=== PATIENT | male | born 1950 | race Caucasian/White ===

== ENCOUNTER → 2019-08-22 08:53 | Outpatient (BNVA) | payer MEDICARE, SELFPAY | PROVIDERS: Visit Provider Specialist | DX: G20 Parkinson's disease (principal); F17.210 Nicotine dependence, cigarettes, uncomplicated | CPT/HCPCS: 99213 ==

== ENCOUNTER 2019-12-10 08:10 | Observation (INO) | payer MEDICARE, SELFPAY ==
[2019-12-10] VITALS (10 sets, daily range): BP systolic 117–158; BP diastolic 80–92; PULSE 57–97; RESP 16–22; TEMP 36.4–36.7; O2SAT 95–98; BMI 42.5
--- NOTE | 2019-12-10 08:11 | CTR_ITS ---
PROCEDURE INFORMATION: Exam: CT Head Without Contrast Exam date and time: 12/10/2019 8:12 AM Age: 68 years old Clinical indication: Weakness, extremity; Left; Additional info: Left sided weaknes TECHNIQUE: Imaging protocol: Computed tomography of the head without contrast. Radiation optimization: All CT scans at this facility use at least one of these dose optimization techniques: automated exposure control; mA and/or kV adjustment per patient size (includes targeted exams where dose is matched to clinical indication); or iterative reconstruction. COMPARISON: CT head wo con* [id number] 10/01/2016 12:00 PM RADIATION DOSE METRICS: Total DLP: 820.13 mGy-cm FINDINGS: Brain: Symmetric prominence of the cortical and cerebellar sulci. No acute cortical infarct, mass effect, or intracranial hemorrhage. Minimal small-vessel ischemic change. Poorly defined curvilinear hyperdensity in the ty (series 2: Image 17), which was also present on the prior study and can be better evaluated with MRI if clinically indicated. Ventricles: Normal configuration of the ventricles. Bones/joints: No acute calvarial pathology. Sinuses: Low-grade inflammatory change in the right ethmoid sinus. Mastoid air cells: No mastoid effusion . Vasculature: Vascular calcification. Soft tissues: Unremarkable soft tissues. When correlating with the previous study, no significant interval changes are present. CT/CT head wo con* [id number] IMPRESSION: Stable appearance of the brain, not significantly changed from 10/01/16. Radiation Dose CTDIVOL = (mGy): DLP = 820.13 (mGy-cm)
--- NOTE | 2019-12-10 08:15 | ED_ITS ---
HPI - Neuro Symptoms/Deficit General: Chief Complaint: Neuro Symptoms/Deficit Stated Complaint: POSS CVA Time Seen by Provider: 12/10/19 08:14 History of Present Illness: HPI Narrative: 68-year-old male who awoke this morning with left-sided weakness, facial weakness, and feeling of numbness. Trouble with speech, although his words are a bit slurred. Onset (ago): hour(s) Last Observed Normal: 22:30 Timing confirmed by: family member Location: left face, dysarthria, left arm and left leg History of same: No Severity: moderate Quality: weak and numb Relieving factors: none Exacerbating factors: none Context: gradual onset On Anticoagulants: No Associated symptoms: Deny chest pain, cough, headache(s), short of breath, vertigo or vomiting Review of Systems Const: Denies: fever(s) or chills Eyes: Denies: change in vision or blurry vision ENMT: Denies: swelling of lips/tongue or sinus pain Card: Denies: chest pain Resp: Denies: dyspnea, productive cough, non-productive cough or wheezing GI: Denies: vomiting : Denies: difficulty urinating, dysuria, urinary frequency, urinary urgency or hematuria Musc: Denies: neck pain, back pain, joint redness or joint warmth Skin/Breast: Denies: rash, pruritus or erythema Neuro: Denies: headache(s), dizziness or vertigo Psych: Denies: anxiety PFSH ED PFSH: Family History Other Cancer Stroke Denies family history of Diabetes CAD (coronary artery disease) Hypertension Social History Smoking and tobacco status: current every day smoker cigarettes [ Other cigarette details: trying to quit ] Alcohol intake: current Alcohol intake frequency: holidays/special occasions only History of recent travel: No NIH stroke score NIHSS: Level Of Consciousness - 1a: 0 Level Of Consciousness Questions - 1b: Both Correct Level Of Consciousness Commands - 1c: Both Correct Best Gaze - 2: Normal Visual Turcios - 3: No Visual Loss Facial Palsy - 4: Partial Paralysis Motor Arm Right - 5: No Drift Motor Arm Left - 5: No Drift Motor Leg Right - 6: No Drift Motor Leg Left - 6: No Drift Limb Ataxia - 7: Present In One Limb Sensory - 8: Mild To Moderate Loss Best Language - 9: No Aphasia Dysarthia - 10: Mild/Moderate Dysarthia Extinction And Inattention - 11: 0 Score: Total Score: 5 Physical Exam Const: GENERAL APPEARANCE: well developed ORIENTATION/CONSCIOUSNESS: Yes oriented to person, Yes oriented to place and Yes oriented to time HENMT: COMMON NORMALS: external ears normal and Normal external nose present HEAD & SCALP: no scalp tenderness FACE & SINUS: normal facial exam NOSE: Normal external nose present and No nasal discharge present EXTERNAL EAR: Yes external ears normal MOUTH: tongue normal THROAT: posterior oropharynx normal; no peritonsillar mass Eye: COMMON NORMALS: Equal, round and reactive pupils present, EOMs intact bilaterally and conjunctivae normal EYELID: eyelids normal CONJUNCTIVA: Yes conjunctivae normal PUPIL: Yes Equal, round and reactive pupils present Neck/C-Spine: COMMON NORMALS: full ROM GENERAL: No tracheal deviation CERVICAL SPINE: Yes normal cervical lordosis Chest: COMMONS NORMALS: normal inspection of the chest CHEST: No tenderness Resp: COMMON NORMALS: clear to auscultation bilaterally EFFORT & INSPECTION: No tachypneic, No respiratory distress, No retractions, No uses accessory muscles and No tracheal deviation AUSCULTATION: clear to auscultation bilaterally, no rhonchi, no wheezes and lung sounds not diminished Cardio: COMMON NORMALS: regular rate and regular rhythm RATE: regular rate RHYTHM: regular rhythm HEART SOUNDS: no murmurs PERIPHERAL PULSES: radial pulses present GI: INSPECTION: No abdominal distension AUSCULTATION: No Hyperactive bowel sounds present and No Hypoactive bowel sounds present PALPATION: No Guarding due to palpation present (GI) and No Rigid due to palpation PERCUSSION: no dullness to percussion and no tympanic to percussion Neuro: SENSORIUM/ORIENTATION: Yes oriented to person, Yes oriented to place and Yes oriented to time Psych: COMMON NORMALS: mental status grossly normal Skin: COMMON NORMALS: no rashes or lesions noted GENERAL SKIN EXAM: no rashes or lesions noted Course Consultations: Consultation #1: tim Time: 11:29 Vital Signs: Vital signs: Vital Signs Temperature 98.1 F 12/10/19 08:23 Pulse Rate 60 12/10/19 11:00 Respiratory Rate 18 12/10/19 11:00 Blood Pressure 151/89 12/10/19 11:00 Pulse Oximetry 95 12/10/19 11:00 MDM - Neuro Symptoms/Deficit MDM Narrative: Medical decision making narrative: Stroke scale is a 5. He has walked in the ER. He seems to be a bit better. He still has a significant facial droop, as well as some dysarthria. He still has sensory changes as well, and some mild weakness. He will be observed. Lab Data: Labs: Lab Results 12/10/19 12/10/19 12/10/19 Range/Units 08:27 08:58 08:58 WBC 7.7 (4.0-10.0) 10^3/ uL RBC 4.36 (4.1-5.3) 10^6/u L Hgb 14.0 (11.7-16.6) g/dL Hct 41.8 L (42.0-52.0) % MCV 95.9 H (80-94) fL MCH 32.1 (28.0-34.0) pg MCHC 33.5 (30.0-36.0) g/dL RDW 12.3 (12.1-15.1) % Plt Count 214 (130-400) 10^3/c mm MPV 10.2 (7.4-10.4) fL Neut % (Auto) 51.1 % Lymph % (Auto) 34.5 % Clare % (Auto) 10.8 % Eos % (Auto) 2.6 % Baso % (Auto) 0.6 % Neut # (Auto) 3.9 (1.8-7.7) 10^3/u L Lymph # (Auto) 2.7 (0.8-4.8) 10^3/u L Clare # (Auto) 0.8 (0.2-0.9) 10^3/u L Eos # (Auto) 0.2 (0.0-0.8) 10^3/u L Baso # (Auto) 0.1 (0.0-0.1) 10^3/u L Nucleated RBC % (a uto) 0 % Nucleated RBCs # 0.0 /100WBC PT 14.20 H (10.5-13.3) SECO NDS INR 1.07 (0.8-1.2) APTT 28.6 (23.9-36.7) SECO NDS Sodium 136 (136-145) mmol/L Potassium 4.3 (3.5-5.1) mmol/L Chloride 101 (98-107) mmol/L Carbon Dioxide 25 (22-29) mmol/L Anion Gap 14.3 (5-19) BUN 12 (8-23) mg/dL Creatinine 1.0 (0.7-1.2) mg/dL GFR Calculation 74.5 L (90-130) mL/min Glucose 109 (65-115) mg/dL Calculated Osmolal ity 279 L (285-295) mOsm/k g Calcium 8.9 (8.5-10.5) mg/dL Total Bilirubin 0.5 (0.15-1.2) mg/dL AST 15 (0-40) U/L ALT 18 (0-41) U/L Alkaline Phosphata se 97 (40-130) IU/L Total Protein 6.2 L (6.6-8.7) g/dL Albumin 3.8 (3.5-5.2) g/dL Globulin 2.4 (1.3-4.6) g/dL Urine Color (Yellow) Urine Appearance (CLEAR) Urine pH (5-7) Ur Specific Gravit y (1.005-1.030) Urine Protein (Negative) Urine Glucose (UA) (Normal) Urine Ketones (Negative) Urine Blood (Negative) Urine Nitrate (Negative) Urine Bilirubin (NEGATIVE) Urine Urobilinogen (Negative) mg/dL Ur Leukocyte Ginny ase (Negative) Urine Opiates Scre en (Negative) ng/mL Ur Barbiturates Sc reen (Negative) ng/mL Ur Phencyclidine S crn (Negative) ng/mL Ur Amphetamines Sc reen (Negative) ng/mL U Benzodiazepines Scrn (Negative) ng/mL Urine Cocaine Scre en (Negative) ng/mL U Marijuana (THC) Screen (Negative) ng/mL 12/10/19 12/10/19 Range/Units 09:45 09:45 WBC (4.0-10.0) 10^3/ uL RBC (4.1-5.3) 10^6/u L Hgb (11.7-16.6) g/dL Hct (42.0-52.0) % MCV (80-94) fL MCH (28.0-34.0) pg MCHC (30.0-36.0) g/dL RDW (12.1-15.1) % Plt Count (130-400) 10^3/c mm MPV (7.4-10.4) fL Neut % (Auto) % Lymph % (Auto) % Clare % (Auto) % Eos % (Auto) % Baso % (Auto) % Neut # (Auto) (1.8-7.7) 10^3/u L Lymph # (Auto) (0.8-4.8) 10^3/u L Clare # (Auto) (0.2-0.9) 10^3/u L Eos # (Auto) (0.0-0.8) 10^3/u L Baso # (Auto) (0.0-0.1) 10^3/u L Nucleated RBC % (a uto) % Nucleated RBCs # /100WBC PT (10.5-13.3) SECO NDS INR (0.8-1.2) APTT (23.9-36.7) SECO NDS Sodium (136-145) mmol/L Potassium (3.5-5.1) mmol/L Chloride (98-107) mmol/L Carbon Dioxide (22-29) mmol/L Anion Gap (5-19) BUN (8-23) mg/dL Creatinine (0.7-1.2) mg/dL GFR Calculation (90-130) mL/min Glucose (65-115) mg/dL Calculated Osmolal ity (285-295) mOsm/k g Calcium (8.5-10.5) mg/dL Total Bilirubin (0.15-1.2) mg/dL AST (0-40) U/L ALT (0-41) U/L Alkaline Phosphata se (40-130) IU/L Total Protein (6.6-8.7) g/dL Albumin (3.5-5.2) g/dL Globulin (1.3-4.6) g/dL Urine Color Yellow (Yellow) Urine Appearance Clear (CLEAR) Urine pH 6 (5-7) Ur Specific Gravit y 1.010 (1.005-1.030) Urine Protein Neg (Negative) Urine Glucose (UA) Norm (Normal) Urine Ketones Negative (Negative) Urine Blood Neg (Negative) Urine Nitrate Negative (Negative) Urine Bilirubin Neg (NEGATIVE) Urine Urobilinogen Norm (Negative) mg/dL Ur Leukocyte Ginny ase Negative (Negative) Urine Opiates Scre en Negative (Negative) ng/mL Ur Barbiturates Sc reen Negative (Negative) ng/mL Ur Phencyclidine S crn Negative (Negative) ng/mL Ur Amphetamines Sc reen Negative (Negative) ng/mL U Benzodiazepines Scrn Negative (Negative) ng/mL Urine Cocaine Scre en Negative (Negative) ng/mL U Marijuana (THC) Screen Negative (Negative) ng/mL Discharge Plan Discharge Condition: Serious Prescriptions: No Action pramipexole [Mirapex] 0.5 mg tablet 0.5 mg PO BID RF: 0 cyclobenzaprine 10 mg tablet 10 mg PO DAILY RF: 0 lisinopril 10 mg tablet 10 mg PO DAILY RF: 0 finasteride 5 mg tablet 5 mg PO DAILY RF: 0 clopidogrel [Plavix] 75 mg tablet 75 mg PO DAILY RF: 0 primidone 50 mg tablet 50 mg PO DAILY RF: 0 folic acid 1 mg tablet 1 mg PO DAILY RF: 0 simvastatin 20 mg tablet 20 mg PO DAILY RF: 0 bupropion HCl 300 mg tablet extended release 24 hr 300 mg PO QAM RF: 0 risperidone [Risperdal] 1 mg tablet 1 mg PO DAILY RF: 0 carbidopa-levodopa [Sinemet] 25-100 mg tablet 1 tab PO TID Qty: 270 RF: 2 Vitamin C 1,000 mg Tablet 500 mg PO DAILY RF: 0 Vitamin B-12 2,500 mcg Tablet, Sublingual 2,500 mcg SUBLINGUAL DAILY RF: 0 Coding Level of Care Code 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
--- NOTE | 2019-12-10 08:16 | XRR_ITS ---
PROCEDURE INFORMATION: Exam: XR Chest, 1 View Exam date and time: 12/10/2019 8:54 AM Age: 68 years old Clinical indication: Other: Weakness om left side; Additional info: AMS TECHNIQUE: Imaging protocol: XR of the chest Views: 1 view. COMPARISON: CR Chest 1 [place] [id number] 07/16/2017 6:36 PM FINDINGS: Lungs: Mild interstitial prominence and trace left basilar airspace disease. Pleural space: No significant pleural effusion. Heart/Mediastinum: Borderline cardiomegaly. Bones/joints: Degenerative change. XR/XR chest 1V portable [id number] IMPRESSION: Mild interstitial prominence and trace left basilar airspace disease.
--- NOTE | 2019-12-10 08:16 | ECG_ITS ---
Measurements Intervals [place] Rate: 57 P: 28 OH: 167 QRS: 24 QRSD: 96 T: 46 QT: 434 QTc: 425 SINUS BRADYCARDIA Compared to ECG 08/12/2017 21:57:35 Sinus rhythm no longer present Sinus arrhythmia no longer present T-wave abnormality no longer present Electronically Signed On 12-11-2019 7:46:58 CDT by Lopez Noriega M.D. [email or web address]
[2019-12-10 08:38] LABS: Basophils # 0.1 10^3/uL (0.0-0.1); Basophils % 0.6 %; Eosinophils # 0.2 10^3/uL (0.0-0.8); Eosinophils % 2.6 %; Hematocrit 41.8 % (42.0-52.0); Lymphocytes # 2.7 10^3/uL (0.8-4.8); Lymphocytes % 34.5 %; Mean Corpuscular HGB Conc 33.5 g/dL (30.0-36.0); Mean Corpuscular Hemoglobin 32.1 pg (28.0-34.0); Mean Corpuscular Volume 95.9 fL (80-94); Mean Platelet Volume 10.2 fL (7.4-10.4); Monocytes # 0.8 10^3/uL (0.2-0.9); Monocytes % 10.8 %; Neutrophils # 3.9 10^3/uL (1.8-7.7); Neutrophils % 51.1 %; Nucleated Red Blood Cells % 0 %; Platelet Count 214 10^3/cmm (130-400); Red Blood Count 4.36 10^6/uL (4.1-5.3); Red Cell Distribution Width 12.3 % (12.1-15.1); White Blood Count 7.7 10^3/uL (4.0-10.0)
--- NOTE | 2019-12-10 08:39 | CTR_ITS ---
PROCEDURE INFORMATION: Exam: CT Angiography Head With Contrast Exam date and time: 12/10/2019 8:43 AM Age: 68 years old Clinical indication: Weakness; Additional info: CVA TECHNIQUE: Imaging protocol: Computed tomography angiography of the head with intravenous contrast. 3D rendering: MIP and/or 3D reconstructed images were created by the technologist. Radiation optimization: All CT scans at this facility use at least one of these dose optimization techniques: automated exposure control; mA and/or kV adjustment per patient size (includes targeted exams where dose is matched to clinical indication); or iterative reconstruction. Contrast material: OMNI 350; Contrast volume: 95 ml; Contrast route: RT WRIST; COMPARISON: CT head wo con* [id number] 12/10/2019 8:03 AM RADIATION DOSE METRICS: Total DLP: 2650.57 mGy-cm FINDINGS: Anterior cerebral arteries: No occlusion or significant stenosis. No aneurysm. Right internal carotid artery: There is mild calcification of the intracranial right internal carotid artery. No significant degrees of stenosis, thrombosis, or occlusion. No evidence of aneurysm. Right middle cerebral artery: No occlusion or significant stenosis. No aneurysm. Right posterior cerebral artery: No occlusion or significant stenosis. No aneurysm. Right vertebral artery: No occlusion or significant stenosis. No aneurysm. Posterior inferior cerebellar artery is patent. Left internal carotid artery: There is calcification of the intracranial left internal carotid artery. No significant degrees of stenosis, thrombosis, or occlusion. No evidence of aneurysm. Left middle cerebral artery: No occlusion or significant stenosis. No aneurysm. Left posterior cerebral artery: No occlusion or significant stenosis. No aneurysm. Left vertebral artery: No occlusion or significant stenosis. No aneurysm. Posterior inferior cerebellar artery is patent. Basilar artery: No occlusion or significant stenosis. No aneurysm. Patent bilateral superior cerebellar arteries. IMPRESSION: No intracranial vascular stenosis or occlusion. PROCEDURE INFORMATION: Exam: CT Angiography Neck With Contrast Exam date and time: 12/10/2019 8:43 AM Age: 68 years old Clinical indication: Weakness; Additional info: CVA TECHNIQUE: Imaging protocol: Computed tomography angiography of the neck with intravenous contrast. 3D rendering: MIP and/or 3D reconstructed images were created by the technologist. Radiation optimization: All CT scans at this facility use at least one of these dose optimization techniques: automated exposure control; mA and/or kV adjustment per patient size (includes targeted exams where dose is matched to clinical indication); or iterative reconstruction. Contrast material: OMNI 350; Contrast volume: 95 ml; Contrast route: RT WRIST; COMPARISON: CT head wo con* [id number] 12/10/2019 8:03 AM RADIATION DOSE METRICS: Total DLP: 2650.57 mGy-cm FINDINGS: Right common carotid artery: No stenosis. No dissection or occlusion. Right internal carotid artery: There is minimal plaque / intimal thickening at right carotid bifurcation. No vascular stenosis. Right external carotid artery: No occlusion or stenosis of the origin. Right vertebral artery: No stenosis. No dissection or occlusion. Left common carotid artery: No stenosis. No dissection or occlusion. Left internal carotid artery: There is minimal plaque / intimal thickening at left carotid bifurcation. No vascular stenosis. Left external carotid artery: No occlusion or stenosis of the origin. Left vertebral artery: A short segment proximal left vertebral artery is obscured by adjacent venous opacification. There is no significant stenosis, thrombosis, occlusion, or evidence of dissection. Left vertebral artery shows no significant stenosis, thrombosis, occlusion, or evidence of dissection. Subclavian arteries: Bilateral subclavian arteries are widely patent. Aorta: There is mild dilation of the ascending aorta measuring 4 mm. No aortic dissection. Normal caliber transverse and proximal descending aorta. Bones/joints: There are degenerative changes in the spine. There are disc osteophyte. There uncinate and facet osteophytes. There is neural narrowing which is greatest left C3-C4 and C4-C5. There is listhesis of C5-C6 and fusion of the C5 and C6 vertebral bodies. There is minimal anterior listhesis at C3-C4 and retrolisthesis C2-C3. There is no acute fracture. Soft tissues: Normal. No significant soft tissue swelling. CT/CT angio headneck* [id number] IMPRESSION: No cervical vascular stenosis or occlusion. REFERENCES: NASCET CRITERIA. The degree of internal carotid artery stenosis is based on NASCET criteria. Normal is no stenosis. Mild is less than 50% stenosis. Moderate is 50-69% stenosis. Severe is 70% to 99% stenosis. Total occlusion is no detectable patent lumen. Radiation Dose CTDIVOL = (mGy): DLP = 2650.57~2650.57 (mGy-cm)
[2019-12-10 09:31] LABS: INR 1.07 (0.8-1.2)
[2019-12-10 09:32] LABS: Partial Thromboplastin Time 28.6 SECONDS (23.9-36.7)
[2019-12-10 09:35] LABS: Alanine Aminotransferase 18 U/L (0-41); Albumin Level 3.8 g/dL (3.5-5.2); Alkaline Phosphatase 97 IU/L (40-130); Anion Gap 14.3 (5-19); Aspartate Amino Transferase 15 U/L (0-40); Blood Urea Nitrogen 12 mg/dL (8-23); Calcium 8.9 mg/dL (8.5-10.5); Carbon Dioxide 25 mmol/L (22-29); Chloride 101 mmol/L (98-107); Globulin 2.4 g/dL (1.3-4.6); Glomerular Filtration Rate 74.5 mL/min (90-130); Glucose 109 mg/dL (65-115); Osmolality Calculated 279 mOsm/kg (285-295); Potassium 4.3 mmol/L (3.5-5.1); Sodium 136 mmol/L (136-145); Total Bilirubin 0.5 mg/dL (0.15-1.2); Total Protein 6.2 g/dL (6.6-8.7)
[2019-12-10 09:59] LABS: Add Urine Microscopic? NO
[2019-12-10 10:01] LABS: Bilirubin Urine Neg (NEGATIVE); Blood Urine Neg (Negative); Glucose Urine UA Norm (Normal); Ketones Urine Negative (Negative); Leukocyte Esterase Urine Negative (Negative); Nitrate Urine Negative (Negative); Protein Urine Neg (Negative); Urine Appearance Clear (CLEAR); Urine Color Yellow (Yellow); Urobilinogen Urine Norm (Negative); pH Urine 6 (5-7)
[2019-12-10] MEDS: iohexol 350 mg/mL 100 mL Btl IV (10:08)
[2019-12-10 10:10] LABS: Amphetamines Screen Urine Negative (Negative); Barbiturates Screen Urine Negative (Negative); Benzodiazepines Screen Urine Negative (Negative); Cocaine Screen Urine Negative (Negative); Opiate Screen Urine Negative (Negative); PCP Screen Urine Negative (Negative); THC Screen Urine Negative (Negative)
--- NOTE | 2019-12-10 12:53 | P.HP_ITS ---
Providers/Chief Complaint Admitting Physician: Catherine Barry MD Primary Care Provider: Madhuri Link Chief Complaint: Left upper extremity weakness, left facial droop History of Present Illness Hi Hong is a 68 year old male with PMHx of HTN, Morbid obesity, Chronic smoker, Parkinsonism syndrome, Dyslipidemia, presents from home accompanied by his for evaluation of noted left upper extremity weakness, left facial droop and some slurring of his speech since approximately 630 this morning when he awakened. He reports going to sleep around 2230 yesterday and other than some mild lightheadedness was otherwise in his usual state of health. is present at bedside during my encounter in the ER. Reportedly patient's speech has improved since his arrival but facial droop and left upper extremity weakness persist. Initial NIHSS was 5, CT of the head is unremarkable for any acute abnormalities and CTA does not show any significant stenosis. He reports a previous history of a stroke in the mid to late 90s which primarily affected his left side though he has had no residual impairment since then. He has been on Plavix since his stroke. He follows up with Dr. Amador due to his history of parkinsonism syndrome and is on Sinemet, pramipexole and primidone. He reports needing to take his medications routinely as when he does not maintain a schedule he has more noticeable jerking particularly of his upper extremities and worsening tremor. From his 's report it seems that he gets more jerking movements of his lower extremities primarily at night so may have some degree of restless leg syndrome. Work-up in terms of labs are unremarkable including CBC, chemistry, urine drug screen, urinalysis. EKG is reported as sinus bradycardia. Chest x-ray is unremarkable. He is hemodynamically stable with blood pressure of 145/87, heart rate in the 50s to 60s, he is afebrile and saturating at 97% on room air. He is a good historian with providing collateral information; further history obtained from review of medical record. He is being admitted for further work-up including echo and therapy evaluations. Review of Systems Const: Denies: fever(s) or chills Eyes: Denies: change in vision or blurry vision ENMT: Reports: dry mouth and other (no difficulty swallowing) Card: Denies: chest pain, edema, swelling of feet/ankles or lightheadedness Resp: Reports: non-productive cough (chronic); Denies: dyspnea GI: Denies: abdominal pain, nausea, vomiting, hematemesis, diarrhea or hematochezia : Denies: dysuria or urinary frequency Musc: Denies: back pain Skin/Breast: Denies: rash Neuro: Reports: numbness in extremities (mild numbness in LUE), weakness in extremities (LUE), dizziness (mild, improving), Slurred speech present (mild, improving) and involuntary movements (chronic); Denies: lack of coordination, difficulty walking, frequent falls, confusion or seizure-like activity Psych: Denies: anxiety Medications/Allergies Home Medications Medication Instructions Recorded Confirmed Last Taken Type bupropion HCl 300 mg 24 hr tablet, 300 mg PO QAM 08/22/19 12/10/19 12/09/19 History extended release clopidogrel 75 mg tablet 75 mg PO DAILY 08/22/19 12/10/19 12/09/19 History cyclobenzaprine 10 mg tablet 10 mg PO DAILY tab 08/22/19 12/10/19 12/09/19 History finasteride 5 mg tablet 5 mg PO DAILY 08/22/19 12/10/19 12/09/19 History folic acid 1 mg tablet 1 mg PO DAILY 08/22/19 12/10/19 12/09/19 History lisinopril 10 mg tablet 10 mg PO DAILY 08/22/19 12/10/19 12/09/19 History pramipexole 0.5 mg tablet 0.5 mg PO BID tab 08/22/19 12/10/19 12/09/19 History primidone 50 mg tablet 50 mg PO DAILY tab 08/22/19 12/10/19 12/09/19 History risperidone 1 mg tablet 1 mg PO DAILY 08/22/19 12/10/19 12/09/19 History simvastatin 20 mg tablet 20 mg PO DAILY 08/22/19 12/10/19 12/09/19 History carbidopa 25 mg-levodopa 100 mg 1 tab PO TID #270 tab 09/20/19 12/10/19 12/09/19 Rx tablet ascorbic acid (vitamin C) [Vitamin 500 mg PO DAILY 12/10/19 12/10/19 12/09/19 History C] cyanocobalamin (vitamin B-12) 2,500 mcg SUBLINGUAL DAILY 12/10/19 12/10/19 12/09/19 History [Vitamin B-12] Allergies Allergy/AdvReac Type Severity Reaction Status Date / Time No Known Allergies Allergy Unverified 12/10/19 08:24 PFSH Acute PFSH: Medical History (Updated 12/10/19 @ 13:11 by Catherine Barry MD) CAD (coronary artery disease) CVA (cerebral vascular accident) -Remote history, no residual deficits Dyslipidemia Hypertension Morbid obesity Parkinsonian syndrome Surgical History (Updated 12/10/19 @ 12:59 by Catherine Barry MD) H/O bone graft R femur Family History (Updated 12/10/19 @ 13:00 by Catherine Barry MD) Mother Cancer colon Stroke Brother Cancer colon/gastric Grandfather Cancer Denies family history of Diabetes CAD (coronary artery disease) Hypertension Social History (Updated 12/10/19 @ 13:00 by Catherine Barry MD) Smoking and tobacco status: current every day smoker cigarettes Number of cigarettes per day: 1-5 [ Other cigarette details: trying to quit, 1 pack per week ] Alcohol intake: current Alcohol intake frequency: holidays/special occasions only Substance/Drug Use: never Household members: spouse Housing: House Marital status: Current occupational status: retired History of recent travel: No Vitals/I&O/Wt Last Vital Signs Temp 98.1 F 12/10/19 08:23 Pulse 97 12/10/19 12:00 Resp 20 H 12/10/19 12:00 BP 145/87 12/10/19 12:00 Pulse Ox 97 12/10/19 12:00 Weight last 48 hrs Weight 130.635 kg Physical Exam Const: COMMON NORMALS: no acute distress, patient oriented x3 and alert G ENERAL APPEARANCE: cooperative and comfortable NUTRITIONAL APPEARANCE: obese morbidly obese ORIENTATION/CONSCIOUSNESS: Yes awake HENMT: COMMON NORMALS: normocephalic, atraumatic, hearing grossly normal bilaterally and moist oral mucous membranes HEAD & SCALP: normocephalic and atraumatic OTHER: -L facial droop, more prominent nasolabial fold on R Eye: COMMON NORMALS: Equal, round and reactive pupils present, EOMs intact bi laterally and conjunctivae normal CONJUNCTIVA: Yes conjunctivae normal PUPIL: Yes Equal, round and reactive pupils present Neck/C-Spine: COMMON NORMALS: full ROM GENERAL: Yes normal visual insp ection and Yes trachea midline Chest: CHEST: Yes Symmetrical chest wall rise Resp: COMMON NORMALS: normal respiratory effort, No retractions, No use of accessory muscles and clear to auscultation bilaterally EFFORT & INSPECTION: Yes able to speak in complete sentences, Yes symmetric chest movement and No tachypneic AUSCULTATION: clear to auscultation bilaterally OTHER: -on RA Cardio: COMMON NORMALS: regular rate, regular rhythm, S1 normal heart sound present, S2 normal heart sound present and No murmurs present (Cardio) RATE: regular rate RHYTHM: regular rhythm HEART SOUNDS: S1 normal heart sound present and S2 normal heart sound present GI: COMMON NORMALS: Normal to inspection, nondistended, normoactive bowel sounds present, Soft to palpation and non-tender INSPECTION: Yes central obesity PALPATION: Yes Soft to palpation Extremity: COMMON NORMALS: normal to inspection, no clubbing, cyanosis or edema and no pedal edema Neuro: COMMON NORMALS: patient oriented x3, moves all extremities, no focal motor deficits and no sensory deficits noted SENSORIUM/ORIENTATION: Yes alert SPEECH: speech normal SENSORY EXAM: Yes extremities (gross sensation intact and equal throughout) MOTOR EXAM: Pronator motor function not present, Abnormal motor strength present (noted LUE weakness, strength 3/5) and Tremors d uring motor activity present resting tremor (baseline) PUPIL EXAM: Normal pupillary reactivity/response: bilateral OTHER: -L facial droop and tongue deviation Psych: COMMON NORMALS: mental status grossly normal, Normal thought process present, cooperative, normal affect and speech normal SPEECH: Yes normal speech THOUGHT PROCESS: Normal thought process present Skin: COMMON NORMALS: no rashes or lesions noted, no jaundice, no petechiae and no mottling GENERAL SKIN EXAM: no rashes or lesions noted Data : 12/10/19 08:27 12/10/19 08:58 A&P Assessment and plan (1) CVA (cerebral vascular accident): -Reports remote history of CVA in , does not recall requiring intervention at that time, no residual impairment, affected left side. Has been on Plavix since then -Now presenting with noted left upper extremity weakness, left facial droop, reported slurred speech which seems to have resolved suspicious for CVA; initial NIHSS-5 -CT head with no acute abnormality noted; CTA H/N negative for significant stenosis -order Echo, no baseline on record -telemetry monitoring -monitor vital signs; currently normotensive; permissive HTN x 24 hrs -resume plavix and statin; add aspirin -fall/aspiration precautions -bedside nursing dysphagia screening -PT/OT/ST evaluations -infection ruled out given no fever, no leukocytosis, UA/CXR negative -UDS negative -check A1c, TSH, lipid panel Status: Acute Qualifiers: CVA mechanism: unspecified Qualified Code(s): I63.9 - Cerebral infarction, unspecified (2) Parkinsonian syndrome: -follows up with Dr. Amador -resume meds -reports that tremors and jerking movements are most prominent at night Status: Chronic Qualifiers: Parkinsonism type: unspecified Qualified Code(s): G20 - Parkinson's disease (3) Morbid obesity: -BMI-43 kg/m2 Status: Chronic (4) Hypertension: -hold oral hypertensives for permissive HTN x 24 hrs -monitor vital signs Status: Chronic Qualifiers: Hypertension type: essential hypertension Qualified Code(s): I10 - Essential (primary) hypertension (5) Dyslipidemia: -check lipid panel -resume statin Status: Chronic Additional A&P Information -low sodium diet as tolerated if passes bedside swallow -DVT ppx with lovenox -chronic smoker; nicotine replacement therapy; smoking cessation encouraged -Dispo: home, lives with -Code status: FULL code Attestations Medical Necessity Statement*: Hi Hong's hospital stay will be less than 2 midnights for work-up for CVA given noted left upper extremity weakness, left facial droop. Time Spent in Patient Care: Greater than 35 minutes (>than 50% of time spent in counselling and/or direct pt care on unit) . Coding Level of Care Code Acute Mobile Architect for Chg Fwd Diagnoses CVA (cerebral vascular accident) I63.9 CVA mechanism: unspecified Parkinsonian syndrome G20 Parkinsonism type: unspecified Morbid obesity E66.01 Hypertension I10 Hypertension type: essential hypertension Dyslipidemia E78.5
--- NOTE | 2019-12-10 12:54 | PC.NURSE ---
Bedside swallow study Assessed patient's ability to swallow oral fluids. Patient did not hesitate to swallow, choke, cough, or leak fluids during or after assessment.
--- NOTE | 2019-12-10 13:24 | USCV_ITS ---
Hi Hong Age: 68 Gender: M : 1950 Exam Date: 12/10/2019 13:45 Ordering Phys: Catherine Barry MD Technologist: Claudia Eubanks [place] [facility] [place]ication: STROKE WORKUP BP: 145 / 87 HR: 60 Rhythm: Sinus Technical Quality: Suboptimal MEASUREMENTS (Male / Female) Normal Values 2D ECHO LV Diastolic Diameter PLAX 3.5 cm 4.2 - 5.9 / 3.9 - 5.3 cm LV Systolic Diameter PLAX 2.3 cm LV Chamber Size 3.7 cm IVS Diastolic Thickness 1.4 cm 0.6 - 1.0 / 0.6 - 0.9 cm IVS Systolic Thickness 1.8 cm LVPW Diastolic Thickness 1.1 cm 0.6 - 1.0 / 0.6 - 0.9 cm LVPW Systolic Thickness 1.3 cm RV Chamber Size 2.5 cm LVOT Diameter 2.0 cm LV Ejection Fraction 2D Teich 64.1 % LA Diameter 2.8 cm LA Width 2.8 cm LA Height 4.3 cm RA Width 2.7 cm RA Height 4.5 cm Aorta at Sinotubular Diameter 3.3 cm M-MODE LV Diastolic Diameter MM 4.3 cm 4.2 - 5.9 / 3.9 - 5.3 cm LV Systolic Diameter MM 2.8 cm LV Ejection Fraction MM Teich 63.7 % IVS Diastolic Thickness MM 1.6 cm 0.6 - 1.0 / 0.6 - 0.9 cm IVS Systolic Thickness MM 1.7 cm LVPW Diastolic Thickness MM 1.0 cm 0.6 - 1.0 / 0.6 - 0.9 cm LVPW Systolic Thickness MM 1.4 cm Aortic Annulus Diameter 4.4 cm LA Ao Ratio MM 0.6 MV E Point Septal Separation 0.8 cm DOPPLER AV Peak Velocity 137.0 cm/s LVOT Peak Velocity 75.0 cm/s AV Area Cont Eq vti 2.0 cm squared AV Area Cont Eq pk 1.8 cm squared MV Area PHT 3.3 cm squared Mitral E to A Ratio 0.8 MV E' Velocity 8.0 cm/s Mitral E to MV E' Ratio 7.4 Mitral E to LV E' Lateral Ratio 7.7 Mitral E to LV E' Septal Ratio 7.1 TV Peak E Velocity 70.0 cm/s Right Atrial Pressure 3.0 mmHg PV Peak Velocity 50.0 cm/s RV Acceleration Time 0.1 s RV Ejection Time 0.3 s RV AcT/ET 0.3 FINDINGS Left Ventricle The ventricle is poorly seen. There is likely normal left ventricular size and function. Overall ejection fraction is about 60%. No obvious wall motion disturbances. Grade 1 diastolic dysfunction. Right Ventricle Normal right ventricular size and systolic function. Normal right ventricular systolic pressure. Right Atrium The right atrium is normal in size. Left Atrium The left atrium is normal in size. Mitral Valve Mitral valve not well visualized. No mitral valve stenosis. No mitral valve regurgitation. Aortic Valve Aortic valve not well visualized. Structurally normal trileaflet aortic valve. Mild aortic valve calcification. Aortic valve sclerosis without stenosis. Mild aortic valve regurgitation. Tricuspid Valve Structurally normal tricuspid valve. Trace tricuspid valve regurgitation. Pulmonic Valve Pulmonic valve not well visualized. Mild pulmonary valve regurgitation. Pericardium Normal pericardium without effusion. Aorta Normal ascending aorta dimension. CONCLUSIONS The ventricle is poorly seen. There is likely normal left ventricular size and function. Overall ejection fraction is about 60%. No obvious wall motion disturbances. Grade 1 diastolic dysfunction. Aortic valve not well visualized. Structurally normal trileaflet aortic valve. Mild aortic valve calcification. Aortic valve sclerosis without stenosis. Mild aortic valve regurgitation. There are no prior echocardiogram studies to compare. Dr. Lopez Noriega MD (Electronically Signed) Final Date: 11 Dec 2019 07:30 S
[2019-12-10] MEDS: nicotine 7 mg Patch 1 PATCH TRANSDERMA (14:10)
[2019-12-10] MEDS: folic acid 1 mg Tablet PO (14:10)
[2019-12-10] MEDS: enoxaparin 40 mg/0.4 mL Syringe SUBCUT (14:10)
[2019-12-10] MEDS: primidone 50 mg Tablet PO (14:10)
[2019-12-10] MEDS: finasteride 5 mg Tablet PO (14:10)
[2019-12-10] MEDS: cyclobenzaprine 10 mg Tablet PO (14:11)
[2019-12-10] MEDS: aspirin 325 mg Tablet PO (14:11)
[2019-12-10] MEDS: risperiDONE 1 mg Tablet PO (14:11)
[2019-12-10] MEDS: carbidopa-levodopa 25-100mg Tablet 1 EACH PO ×2 (14:30→22:17)
[2019-12-10 17:03] LABS: Glucose Point of Care 126 mg/dL (70-110)
[2019-12-10] MEDS: acetaminophen 325 mg Tablet 650 MG PO ×2 (17:54→23:23)
[2019-12-10] MEDS: pramipexole 0.25 mg Tablet 0.5 MG PO (17:54)
[2019-12-10 21:07] LABS: Glucose Point of Care 93 mg/dL (70-110)
[2019-12-10] MEDS: atorvastatin 40 mg Tablet 10 MG PO (22:17)
[2019-12-11 01:15] VITALS: BP 106/69; PULSE 62; RESP 20; TEMP 36.6; O2SAT 94
[2019-12-11 03:57] VITALS: BP 143/90; PULSE 68; RESP 18; TEMP 36.2; O2SAT 95
[2019-12-11 06:00] VITALS: BMI 35.7
[2019-12-11 06:21] LABS: Estmated Average Glucose 128; Hemoglobin A1C 6.1 % (4.0-6.0)
[2019-12-11] MEDS: buPROPion XL (24 HR) 300 mg Tablet PO (06:26)
[2019-12-11 06:28] LABS: Cholesterol 127 mg/dL (0-200); HDL Cholesterol 41 mg/dL (60-100); LDL Cholesterol Calculated 72 mg/dL (50-129); LDL HDL Ratio 1.76 RATIO (0.00-3.22); Triglycerides 72 mg/dL (0-150)
[2019-12-11 06:30] LABS: Glucose Point of Care 105 mg/dL (70-110)
[2019-12-11] MEDS: acetaminophen 325 mg Tablet 650 MG PO (06:32)
[2019-12-11 07:26] VITALS: BP 138/89; PULSE 59; RESP 22; TEMP 36.3; O2SAT 97
[2019-12-11] MEDS: carbidopa-levodopa 25-100mg Tablet 1 EACH PO (08:24)
[2019-12-11] MEDS: aspirin 81 mg EC Tablet PO (08:24)
[2019-12-11] MEDS: clopidogrel 75 mg Tablet PO (08:24)
[2019-12-11] MEDS: cyanocobalamin 1,000 mcg Tablet 2500 MCG PO (08:24)
[2019-12-11] MEDS: ascorbic acid 500 mg Tablet PO (08:24)
[2019-12-11] MEDS: cyclobenzaprine 10 mg Tablet PO (08:25)
[2019-12-11] MEDS: pramipexole 0.25 mg Tablet 0.5 MG PO (08:25)
[2019-12-11] MEDS: finasteride 5 mg Tablet PO (08:26)
[2019-12-11] MEDS: risperiDONE 1 mg Tablet PO (08:26)
[2019-12-11] MEDS: folic acid 1 mg Tablet PO (08:26)
[2019-12-11] MEDS: primidone 50 mg Tablet PO (08:26)
--- NOTE | 2019-12-11 08:30 | P.DS_ITS ---
Discharge Providers Date of Admission: 12/10/19 11:45 Date of Discharge: December 11, 2019 Attending Provider at Admission: Catherine Barry MD Attending Provider at Discharge: Catherine Barry MD Primary Care Provider: Madhuri Link Diagnoses at Discharge Discharge Diagnosis (1) CVA (cerebral vascular accident): Status: Acute Problem details: -Reports remote history of CVA in , does not recall requiring intervention at that time, no residual impairment, affected left side. Has been on Plavix since then -Now presenting with noted left upper extremity weakness, left facial droop, reported slurred speech which seems to have resolved suspicious for CVA; initial NIHSS-5 -CT head with no acute abnormality noted; CTA H/N negative for significant st enosis -Echo: EF=60%, G1DD, no RWMA, mild AR, mild [place], no baseline on record -telemetry monitoring -monitor vital signs; currently normotensive; permissive HTN x 24 hrs -on plavix, statin, aspirin -fall/aspiration precautions -passed bedside nursing dysphagia screening -PT/OT/ST evaluations appreciated -infection ruled out given no fever, no leukocytosis, UA/CXR negative -UDS negative -noted A1c, TSH, lipid panel Qualifiers: CVA mechanism: unspecified Qualified Code(s): I63.9 - Cerebral infarction, unspecified (2) Parkinsonian syndrome: Status: Chronic Problem details: -follows up with Dr. Amador -continue meds -reports that tremors and jerking movements are most prominent at night Qualifiers: Parkinsonism type: unspecified Qualified Code(s): G20 - Parkinson's disease (3) Morbid obesity: Status: Chronic Problem details: -BMI-36 kg/m2 (4) Hypertension: Status: Chronic Problem details: -hold oral hypertensives for permissive HTN x 24 hrs; can resume on d/c -VSS Qualifiers: Hypertension type: essential hypertension Qualified Code(s): I10 - Essential (primary) hypertension (5) Dyslipidemia: Status: Chronic Problem details: -noted lipid panel -on statin Reason for Visit Reason for Visit: Reason For Visit: Left upper extremity weakness, left facial droop Hospital Course Hospital Course: Patient was admitted to the medical surgical floor and placed on telemetry monitoring. He had already had a CT scan of the head and CTA of the head and neck done in the ER both of which were unremarkable for any si gnificant abnormalities. He had an echo done which is as noted above. He has done well overnight, been hemodynamically stable, no events noted on telemetry and some improvement in strength in left upper extremity though left facial droop persists. He has done well with his therapy evaluations and been cleared for discharge home. He will need to follow-up with his primary care provider within 1 week and is to continue to follow-up with Dr. Amador as scheduled. Discharge Summary: -Patient to follow up with primary care provider within 1 week -Patient to continue to follow up with Dr. Amador Physical Exam Const: COMMON NORMALS: no acute distress, patient oriented x3 and alert GENERAL APPEARANCE: cooperative and comfortable NUTRITIONAL APPEARANCE: obese morbidly obese ORIENTATION/CONSCIOUSNESS: Yes awake HENMT: COMMON NORMALS: normocephalic, atraumatic, hearing grossly normal bilaterally and moist oral mucous membranes HEAD & SCALP: normocephalic and atraumatic OTHER: -L facial droop, more prominent nasolabial fold on R Eye: COMMON NORMALS: Equal, round and reactive pupils present, EOMs intact bilaterally and conjunctivae normal CONJUNCTIVA: Yes conjunctivae normal PUPIL: Yes Equal, round and reactive pupils present Neck/C-Spine: COMMON NORMALS: full ROM GENERAL: Yes normal visual inspection and Yes trachea midline Chest: CHEST: Yes Symmetrical chest wall rise Resp: COMMON NORMALS: normal respiratory effort, No retractions, No use of accessory muscles and clear to auscultation bilaterally EFFORT & INSPECTION: Yes able to speak in complete sentences, Yes symmetric chest movement and No tachypneic AUSCULTATION: clear to auscultation bilaterally OTHER: -on RA Cardio: COMMON NORMALS: regular rate, regular rhythm, S1 normal heart sound present, S2 normal heart sound present and No murmurs present (Cardio) RATE: regular rate RHYTHM: regular rhythm HEART SOUNDS: S1 normal heart sound present and S2 normal heart sound present GI: COMMON NORMALS: Normal to inspection, nondistended, normoactive bowel lincoln nds present, Soft to palpation and non-tender INSPECTION: Yes central obesity PALPATION: Yes Soft to palpation Extremity: COMMON NORMALS: normal to inspection, no clubbing, cyanosis or edema and no pedal edema Neuro: COMMON NORMALS: patient oriented x3, moves all extremities, no focal motor deficits and no sensory deficits noted SENSORIUM/ORIENTATION: Yes alert SPEECH: speech normal SENSORY EXAM: Yes extremities (gross sensation intact and equal throughout) MOTOR EXAM: Pronator motor function not present, Abnormal motor strength present (noted LUE weakness, strength 4/5) and Tremors during motor activity present resting tremor (baseline) PUPIL EXAM: Normal pupillary reactivity/response: bilateral OTHER: -L facial droop and tongue deviation Psych: COMMON NORMALS: mental status grossly normal, Normal thought process present, cooperative, normal affect and speech normal SPEECH: Yes normal speech THOUGHT PROCESS: Normal thought process present Skin: COMMON NORMALS: no rashes or lesions noted, no jaundice, no petechiae and no mottling GENERAL SKIN EXAM: no rashes or lesions noted Discharge Data Data Completed and Pending: Completed Studies During Hospitalization Category Date Time Status CT angio headneck * [id number] Urge nt Cat Scan 12/10/19 08:[address] head wo con* [id number] Urgent Cat Scan 12/10/19 08:11 Completed XR chest 1V sanjana ble [id number] Stat Exams 12/10/19 08:16 Completed CV echo complete* [id number] Routine Ultrasound 12/10/19 13:24 Completed Labs from last 24 hours 12/11/19 12/11/19 12/11/19 06:25 04:50 04:50 WBC RBC Hgb Hct MCV MCH MCHC RDW Plt Count MPV Neut % (Auto) Lymph % (Auto) [place] % (Auto) Eos % (Auto) Baso % (Auto) Neut # (Auto) Lymph # (Auto) [place] # (Auto) Eos # (Auto) Baso # (Auto) Nucleated RBC % (a uto) Nucleated RBCs # PT INR APTT Sodium Potassium Chloride Carbon Dioxide Anion Gap BUN Creatinine GFR Calculation Glucose POC Glucose 105 Estimat Average Gl ucose 128 Hemoglobin A1c 6.1 H Calculated Osmolal ity Calcium Total Bilirubin AST ALT Alkaline Phosphata se Total Protein Albumin Globulin Triglycerides 72 Cholesterol 127 LDL Cholesterol, C alc 72 HDL Cholesterol 41 L LDL/HDL Ratio 1.76 Cholesterol/HDL Ra renee 3.10 TSH 1.80 Urine Color Urine Appearance Urine pH Ur Specific Gravit y Urine Protein Urine Glucose (UA) Urine Ketones Urine Blood Urine Nitrate Urine Bilirubin Urine Urobilinogen Ur Leukocyte Ginny ase Urine Opiates Scre en Ur Barbiturates Sc reen Ur Phencyclidine S crn Ur Amphetamines Sc reen U Benzodiazepines Scrn Urine Cocaine Scre en U Marijuana (THC) Screen 12/10/19 12/10/19 12/10/19 20:40 16:15 09:45 WBC RBC Hgb Hct MCV MCH MCHC RDW Plt Count MPV Neut % (Auto) Lymph % (Auto) [place] % (Auto) Eos % (Auto) Baso % (Auto) Neut # (Auto) Lymph # (Auto) [place] # (Auto) Eos # (Auto) Baso # (Auto) Nucleated RBC % (a uto) Nucleated RBCs # PT INR APTT Sodium Potassium Chloride Carbon Dioxide Anion Gap BUN Creatinine GFR Calculation Glucose POC Glucose 93 126 Estimat Average Gl ucose Hemoglobin A1c Calculated Osmolal ity Calcium Total Bilirubin AST ALT Alkaline Phosphata se Total Protein Albumin Globulin Triglycerides Cholesterol LDL Cholesterol, C alc HDL Cholesterol LDL/HDL Ratio Cholesterol/HDL Ra renee TSH Urine Color Urine Appearance Urine pH Ur Specific Gravit y Urine Protein Urine Glucose (UA) Urine Ketones Urine Blood Urine Nitrate Urine Bilirubin Urine Urobilinogen Ur Leukocyte Ginny ase Urine Opiates Scre en Negative Ur Barbiturates Sc reen Negative Ur Phencyclidine S crn Negative Ur Amphetamines Sc reen Negative U Benzodiazepines Scrn Negative Urine Cocaine Scre en Negative U Marijuana (THC) Screen Negative 12/10/19 12/10/19 12/10/19 09:45 08:58 08:58 WBC RBC Hgb Hct MCV MCH MCHC RDW Plt Count MPV Neut % (Auto) Lymph % (Auto) [place] % (Auto) Eos % (Auto) Baso % (Auto) Neut # (Auto) Lymph # (Auto) [place] # (Auto) Eos # (Auto) Baso # (Auto) Nucleated RBC % (a uto) Nucleated RBCs # PT 14.20 H INR 1.07 APTT 28.6 Sodium 136 Potassium 4.3 Chloride 101 Carbon Dioxide 25 Anion Gap 14.3 BUN 12 Creatinine 1.0 GFR Calculation 74.5 L Glucose 109 POC Glucose Estimat Average Gl ucose Hemoglobin A1c Calculated Osmolal ity 279 L Calcium 8.9 Total Bilirubin 0.5 AST 15 ALT 18 Alkaline Phosphata se 97 Total Protein 6.2 L Albumin 3.8 Globulin 2.4 Triglycerides Cholesterol LDL Cholesterol, C alc HDL Cholesterol LDL/HDL Ratio Cholesterol/HDL Ra reene TSH Urine Color Yellow Urine Appearance Clear Urine pH 6 Ur Specific Gravit y 1.010 Urine Protein Neg Urine Glucose (UA) Norm Urine Ketones Negative Urine Blood Neg Urine Nitrate Negative Urine Bilirubin Neg Urine Urobilinogen Norm Ur Leukocyte Ginny ase Negative Urine Opiates Scre en Ur Barbiturates Sc reen Ur Phencyclidine S crn Ur Amphetamines Sc reen U Benzodiazepines Scrn Urine Cocaine Scre en U Marijuana (THC) Screen 12/10/19 08:27 WBC 7.7 RBC 4.36 Hgb 14.0 Hct 41.8 L MCV 95.9 H MCH 32.1 MCHC 33.5 RDW 12.3 Plt Count 214 MPV 10.2 Neut % (Auto) 51.1 Lymph % (Auto) 34.5 [place] % (Auto) 10.8 Eos % (Auto) 2.6 Baso % (Auto) 0.6 Neut # (Auto) 3.9 Lymph # (Auto) 2.7 [place] # (Auto) 0.8 Eos # (Auto) 0.2 Baso # (Auto) 0.1 Nucleated RBC % (a uto) 0 Nucleated RBCs # 0.0 PT INR APTT Sodium Potassium Chloride Carbon Dioxide Anion Gap BUN Creatinine GFR Calculation Glucose POC Glucose Estimat Average Gl ucose Hemoglobin A1c Calculated Osmolal ity Calcium Total Bilirubin AST ALT Alkaline Phosphata se Total Protein Albumin Globulin Triglycerides Cholesterol LDL Cholesterol, C alc HDL Cholesterol LDL/HDL Ratio Cholesterol/HDL Ra renee TSH Urine Color Urine Appearance Urine pH Ur Specific Gravit y Urine Protein Urine Glucose (UA) Urine Ketones Urine Blood Urine Nitrate Urine Bilirubin Urine Urobilinogen Ur Leukocyte Ginny ase Urine Opiates Scre en Ur Barbiturates Sc reen Ur Phencyclidine S crn Ur Amphetamines Sc reen U Benzodiazepines Scrn Urine Cocaine Scre en U Marijuana (THC) Screen Vitals: Last Vital Signs Temp 97.3 F L 12/11/19 07:26 Pulse 59 L 12/11/19 07:26 Resp 22 H 12/11/19 07:26 BP 138/89 12/11/19 07:26 Pulse Ox 97 12/11/19 07:26 Discharge Plan Discharge Patient Disposition: Home, Self-Care Condition: Stable Prescriptions: New aspirin 81 mg Tablet,Delayed Release (Dr/Ec) 81 mg PO DAILY 30 Days Qty: 30 RF: 0 Continued pramipexole [Mirapex] 0.5 mg tablet 0.5 mg PO BID RF: 0 cyclobenzaprine 10 mg tablet 10 mg PO DAILY RF: 0 finasteride 5 mg tablet 5 mg PO DAILY RF: 0 primidone 50 mg tablet 50 mg PO DAILY RF: 0 folic acid 1 mg tablet 1 mg PO DAILY RF: 0 bupropion HCl 300 mg tablet extended release 24 hr 300 mg PO QAM RF: 0 risperidone [Risperdal] 1 mg tablet 1 mg PO DAILY RF: 0 carbidopa-levodopa [Sinemet] 25-100 mg tablet 1 tab PO TID Qty: 270 RF: 2 Vitamin C 1,000 mg Tablet 500 mg PO DAILY RF: 0 Vitamin B-12 2,500 mcg Tablet, Sublingual 2,500 mcg SUBLINGUAL DAILY RF: 0 Plavix 75 mg tablet 75 mg PO DAILY 30 Days Qty: 30 RF: 0 lisinopril 10 mg tablet 10 mg PO DAILY 30 Days Qty: 30 RF: 0 Changed simvastatin 20 mg tablet 40 mg PO BEDTIME 30 Days Qty: 60 RF: 0 Discharge Orders: Discharge Order (Routine); Ordered 12/11/19 Ordered By: Catherine Barry Referrals: Stan Pickett [Family Provider] - 4-7 days (Post hospital discharge follow up. ) Discharge Diet: Cardiac Discharge Activity: Increase activity as tolerated and As per PT/OT instructions Patient Instructions: Aspirin (By mouth), Hypertension, Heart Healthy Diet (DC), Self Care Measures After a Stroke (DC), Self Care Measures After a Stroke (GEN), Stroke Stoplight Discharge Attestations Time Spent in Discharge Care*: greater than 30 min Specific Discharge Activities: Specific discharge activities: educating patient, educating and/or supporting family/caregiver, discussing with case coordinator/social workers/dc planners, documenting/other paperwork and evaluating patient/reviewing data Time Spent in Smoking Cessation: Time spent discussing smoking cessation with patient: 3 to 10 minutes Details of Smoking Cessation Education: Patient is already actively working on quitting smoking. Status at Discharge: Cognitive status at discharge: cognitively intact , Behavioral status at discharge: cooperative and independent in ADL's , Functional status at discharge: uses cane/walker Overall status at discharge: patient is progressing back to baseline Quality Metrics Clinical Quality Measures During this hospital stay, did patient experience: Stroke Contraindication to Antithrombotic: Antithrombotic prescribed Contraindication to Anticoagulation: Overlap treatment not indicated Contraindication to Statin: Statin prescribed Contraindication to tPA: Did not meet criteria (timeline is outside window) Rehab services assessed: Physical therapy, Occupational therapy and Speech therapy Coding Level of Care Code Acute Jack Setter for Chg Fwd Diagnoses CVA (cerebral vascular accident) I63.9 CVA mechanism: unspecified Parkinsonian syndrome G20 Parkinsonism type: unspecified Morbid obesity E66.01 Hypertension I10 Hypertension type: essential hypertension Dyslipidemia E78.5
[2019-12-11 08:38] VITALS: BP 138/89; PULSE 59; RESP 22; TEMP 36.3; O2SAT 97
[2019-12-11 10:44] LABS: Glucose Point of Care 97 mg/dL (70-110)
--- NOTE | 2019-12-13 13:08 | PC.RESP ---
SMOKING CESSATION INFORMATION SENT TO PATIENT.
== END 2019-12-11 10:45 | disposition home or self-care (01) ==
LOC: ER 08:42 → MEDSURG 11:46
PROVIDERS: Emergency Medicine; Admitting Provider Family Medicine; Family Provider Family Medicine; PCP Nurse Practitioner Family; Visit Provider Family Medicine
DX: I63.9 Cerebral infarction, unspecified (principal); G20 Parkinson's disease; E66.01 Morbid (severe) obesity due to excess calories; Z68.35 Body mass index [BMI] 35.0-35.9, adult; I10 Essential (primary) hypertension; Z79.02 Long term (current) use of antithrombotics/antiplatelets; E78.5 Hyperlipidemia, unspecified; F17.210 Nicotine dependence, cigarettes, uncomplicated; I25.10 Atherosclerotic heart disease of native coronary artery without angina pectoris; Z86.73 Personal history of transient ischemic attack (TIA), and cerebral infarction without residual deficits
CPT/HCPCS: 12345; 36415; 36416; 70450; 70496; 70498; 71045; 80053; 80061; 80306; 81003; 82962; 83036; 84443; 85025; 85610; 85730; 92523; 92610; 93005; 93306; 96372; 97116; 97161; 99284; 99285; G0378; J1650; Q9967

== ENCOUNTER → 2020-01-19 13:52 | Outpatient (BNVA) | payer MEDICARE, SELFPAY | PROVIDERS: Family Provider Family Medicine; PCP Family Medicine; Referring Provider Family Medicine; Visit Provider Specialist | DX: G20 Parkinson's disease (principal); F02.80 Dementia in other diseases classified elsewhere, unspecified severity, without behavioral disturbance, psychotic disturbance, mood disturbance, and anxiety; I63.511 Cerebral infarction due to unspecified occlusion or stenosis of right middle cerebral artery; F17.200 Nicotine dependence, unspecified, uncomplicated | CPT/HCPCS: 99215 ==

== ENCOUNTER 2020-02-01 06:00 | Outpatient (RCR) | payer MEDICARE, SELFPAY | END 2020-02-10 23:59 | disposition home or self-care (01) | LOC: GPT 06:00 | PROVIDERS: PCP Family Medicine; Referring Provider Specialist; Visit Provider Specialist | DX: I69.30 Unspecified sequelae of cerebral infarction (principal) | CPT/HCPCS: 97032; 97110; 97140; 97161; 97530 ==

== ENCOUNTER 2020-02-11 06:00 | Outpatient (RCR) | payer MEDICARE, SELFPAY | END 2020-03-12 23:59 | disposition home or self-care (01) | LOC: GPT 06:00 | PROVIDERS: PCP Family Medicine; Referring Provider Specialist; Visit Provider Specialist | DX: I69.959 Hemiplegia and hemiparesis following unspecified cerebrovascular disease affecting unspecified side (principal) | CPT/HCPCS: 97110; 97112; 97530 ==

== ENCOUNTER → 2020-07-16 14:17 | Outpatient (BNVA) | payer MEDICARE, SELFPAY | PROVIDERS: PCP Family Medicine; Visit Provider Specialist | DX: G20 Parkinson's disease (principal); Z86.73 Personal history of transient ischemic attack (TIA), and cerebral infarction without residual deficits; F17.210 Nicotine dependence, cigarettes, uncomplicated | CPT/HCPCS: 99213; 99214 ==

== ENCOUNTER → 2021-07-16 09:25 | Outpatient (BNVA) | payer MEDICARE, SELFPAY | PROVIDERS: PCP Family Medicine; Visit Provider Specialist | DX: G20 Parkinson's disease (principal); G44.86 Cervicogenic headache; Z86.73 Personal history of transient ischemic attack (TIA), and cerebral infarction without residual deficits | CPT/HCPCS: 99213; 99214 ==

== ENCOUNTER 2021-09-01 09:54 | Emergency (ER) | payer MEDICARE, SELFPAY ==
[2021-09-01 10:02] VITALS: BP 124/82; PULSE 70; RESP 21; TEMP 36.8; O2SAT 95; BMI 34.4
--- NOTE | 2021-09-01 10:26 | CTR_ITS ---
PROCEDURE INFORMATION: Exam: CT Head Without Contrast Exam date and time: 09/01/2021 10:26 AM Age: 70 years old Clinical indication: Pain; Headache; Additional info: Vertigo; Frontal headache; H/o TIA; On plavix TECHNIQUE: Imaging protocol: Computed tomography of the head without contrast. Radiation optimization: All CT scans at this facility use at least one of these dose optimization techniques: automated exposure control; mA and/or kV adjustment per patient size (includes targeted exams where dose is matched to clinical indication); or iterative reconstruction. COMPARISON: CT head wo con* [id number] 12/10/2019 8:03 AM RADIATION DOSE METRICS: Total DLP (mGy-cm): 1666.85 FINDINGS: Brain: No intracranial hemorrhage. Punctate calcification within the right ty (see coronal image 21 series 601) appears similar on December 10, 2019 comparison exam. Normal ruts-white differentiation with no evidence of edema or territorial infarct. No abnormal mass effect or midline shift. No extra-axial fluid collection. Cerebral ventricles: No ventriculomegaly. Paranasal sinuses: Visualized sinuses are unremarkable. No fluid levels. Mastoid air cells: Visualized mastoid air cells are well aerated. Bones/joints: No acute fracture. Soft tissues: Unremarkable. CT/CT head wo con* [id number] IMPRESSION: No acute findings.
--- NOTE | 2021-09-01 10:26 | XRR_ITS ---
PROCEDURE INFORMATION: Exam: XR Chest Exam date and time: 09/01/2021 10:26 AM Age: 70 years old Clinical indication: Dyspnea TECHNIQUE: Imaging protocol: XR of the chest. Views: 1 view. COMPARISON: CR XR chest 1V portable [id number] 12/10/2019 8:44 AM FINDINGS: Lungs: Unchanged mild increased interstitial markings at the left lateral lung base, consistent with scarring. No consolidation. Pleural spaces: Unremarkable. No pleural effusion. No pneumothorax. Heart/Mediastinum: Unremarkable. No cardiomegaly. Vasculature: Mild unfolding of the descending aorta. Bones/joints: Unremarkable. XR/XR chest 1V portable [id number] IMPRESSION: No acute findings.
--- NOTE | 2021-09-01 10:29 | W.ED.SOB ---
HPI - SOB/Dyspnea General: Chief Complaint: Headache Stated Complaint: high blood pressure Time Seen by Provider: 09/01/21 10:18 Source: patient and family () Mode of arrival: ambulatory Limitations: no limitations History of Present Illness: HPI Narrative: Patient with complaints of mild shortness of breath, vertigo, generalized fatigue that started 3 days ago. Patient is also had a dull bilateral frontal headache that worsened today. Denies any fever or chills. Denies any cough. Patient does smoke cigarettes. Estel history includes TIA approximately 2 years ago. Medications include Tylenol today and Plavix daily. Denies any allergies to medications. MD elicited complaint: shortness of breath (Headache, vertigo, fatigue) Onset (ago): day(s) (3) Severity: mild Exacerbating factors: exertion Relieving factors: rest Known history of: other (TIA) Associated symptoms: Reports dizziness; Deny abdominal pain, chest congestion, chest pain, cough, diaphoresis, extremity pain, fever(s), hemoptysis, lightheadedness, myalgias, nausea, orthopnea, palpitations, paresthesias, rash, syncope or vomiting Review of Systems Const: Denies: fever(s) or diaphoresis Eyes: Denies: change in vision ENMT: Denies: throat pain Card: Denies: chest pain, palpitations, lightheadedness, syncope or orthopnea Resp: Reports: dyspnea; Denies: productive cough, hemoptysis or chest congestion GI: Denies: abdominal pain, nausea or vomiting : Reports: urinary frequency; Denies: flank pain Musc: Denies: extremity pain Skin/Breast: Denies: rash or pruritus Neuro: Reports: dizziness Psych: Denies: anxiety Rafita/Lymph: Denies: enlarged lymph nodes FOR[facility] ED PFSH: Medical History (Updated 09/01/21 @ 11:45 by Donald Sullivan MD) CAD (coronary artery disease) CVA (cerebral vascular accident) -Reports remote history of CVA in , does not recall requiring intervention at that time, no residual impairment, affected left side. Has been on Plavix since then -Now presenting with noted left upper extremity weakness, left facial droop, reported slurred speech which seems to have resolved suspicious for CVA; initial NIHSS-5 -CT head with no acute abnormality noted; CTA H/N negative for significant stenosis -Echo: EF=60%, G1DD, no RWMA, mild AR, mild ID, no baseline on record -telemetry monitoring -monitor vital signs; currently normotensive; permissive HTN x 24 hrs -on plavix, statin, aspirin -fall/aspiration precautions -passed bedside nursing dysphagia screening -PT/OT/ST evaluations appreciated -infection ruled out given no fever, no leukocytosis, UA/CXR negative -UDS negative -noted A1c, TSH, lipid panel Dyslipidemia -noted lipid panel -on statin Hypertension -hold oral hypertensives for permissive HTN x 24 hrs; can resume on d/c -VSS Morbid obesity -BMI-36 kg/m2 Parkinsonian syndrome -follows up with Dr. Amador -continue meds -reports that tremors and jerking movements are most prominent at night Surgical History H/O bone graft R femur Family History Mother Cancer colon Stroke Brother Cancer colon/gastric Grandfather Cancer Denies family history of Diabetes CAD (coronary artery disease) Hypertension Social History Smoking and tobacco status: never smoked Alcohol intake: current Alcohol intake frequency: holidays/special occasions only Household members: spouse Housing: House Marital status: Current occupational status: retired History of recent travel: No Physical Exam Const: COMMON NORMALS: no acute distress, patient oriented x3, no limitations and well nourished GENERAL APPEARANCE: cooperative HENMT: COMMON NORMALS: normocephalic and atraumatic HEAD & SCALP: normocephalic and atraumatic FACE & SINUS: normal facial exam Eye: COMMON NORMALS: EOMs intact bilaterally Neck/C-Spine: COMMON NORMALS: full ROM, no lymphadenopathy, supple and no meningeal signs GENERAL: Yes normal visual inspection Lymph: LYMPHATIC: no lymphadenopathy noted Chest: COMMONS NORMALS: normal inspection of the chest and normal palpation of entire chest wall CHEST: No Ecchymosis present and No rash Resp: COMMON NORMALS: normal respiratory effort, No retractions and clear to auscultation bilaterally EFFORT & INSPECTION: No respiratory distress AUSCULTATION: clear to auscultation bilaterally Cardio: COMMON NORMALS: regular rate, regular rhythm and Peripheral pulses 2+ throughout JUGULAR VENOUS DISTENTION: no JVD RATE: regular rate RHYTHM: regular rhythm PERIPHERAL PULSES: Peripheral pulses 2+ throughout OTHER: No peripheral edema. GI: COMMON NORMALS: Normal to inspection, nondistended, normoactive bowel sounds present and non-tender INSPECTION: Yes other (Obese, reducible umbilical hernia. Nontender normoactive bowel sounds) Extremity: COMMON NORMALS: normal to inspection, full ROM and capillary refill normal Neuro: COMMON NORMALS: patient oriented x3, CN's II-XII intact bilaterally, no focal motor deficits and no sensory deficits noted MENINGEAL SIGNS: Yes no meningeal signs Psych: COMMON NORMALS: mental status grossly normal and Normal thought process present THOUGHT PROCESS: Normal thought process present Skin: COMMON NORMALS: no rashes or lesions noted and no wounds GENERAL SKIN EXAM: no rashes or lesions noted Course Vital Signs: Vital signs: Vital Signs Temperature 98.3 F 09/01/21 10:02 Pulse Rate 63 09/01/21 11:31 Respiratory Rate 20 H 09/01/21 11:31 Blood Pressure 138/85 09/01/21 11:31 Pulse Oximetry 97 09/01/21 11:31 MDM - SOB/Dyspnea Medical Decision Making Patient states he is up-to-date on his Covid vaccines. Lab Data I reviewed the patient's lab results. Covid antigen is negative. Troponin and BNP are both normal. : 09/01/21 10:11 09/01/21 10:11 Labs/Radiology: Radiology Impressions Chest X-Ray 09/01/21 10:26 IMPRESSION: No acute findings. Head CT 09/01/21 10:26 IMPRESSION: No acute findings. Laboratory Results WBC 10.2 10^3/uL (4.0-10.0) H 09/01/21 10:11 RBC 4.65 10^6/uL (4.1-5.3) 09/01/21 10:11 Hgb 14.9 g/dL (11.7-16.6) 09/01/21 10:11 Hct 45.4 % (42.0-52.0) 09/01/21 10:11 MCV 97.6 fl (80-94) H 09/01/21 10:11 MCH 32.0 pg (28.0-34.0) 09/01/21 10:11 MCHC 32.8 g/dL (30.0-36.0) 09/01/21 10:11 RDW 12.4 % (12.1-15.1) 09/01/21 10:11 Plt Count 217 10^3/cmm (130-400) 09/01/21 10:11 MPV 10.1 fL (7.4-10.4) 09/01/21 10:11 Neut % (Auto) 52.6 % 09/01/21 10:11 Lymph % (Auto) 37.2 % 09/01/21 10:11 [place] % (Auto) 8.2 % 09/01/21 10:11 Eos % (Auto) 1.2 % 09/01/21 10:11 Baso % (Auto) 0.4 % 09/01/21 10:11 Neut # (Auto) 5.36 10^3/uL (1.8-7.7) 09/01/21 10:11 Lymph # (Auto) 3.8 10^3/uL (0.8-4.8) 09/01/21 10:11 [place] # (Auto) 0.8 10^3/uL (0.2-0.9) 09/01/21 10:11 Eos # (Auto) 0.1 10^3/uL (0.0-0.8) 09/01/21 10:11 Baso # (Auto) 0.0 10^3/uL (0.0-0.1) 09/01/21 10:11 Nucleated RBC % (auto) 0 % 09/01/21 10:11 Nucleated RBCs # 0.0 /100WBC 09/01/21 10:11 Sodium 134 mmol/L (136-145) L 09/01/21 10:11 Potassium 4.2 mmol/L (3.5-5.1) 09/01/21 10:11 Chloride 103 mmol/L (98-107) 09/01/21 10:11 Carbon Dioxide 21 mmol/L (22-29) L 09/01/21 10:11 Anion Gap 14.2 (5-19) 09/01/21 10:11 BUN 10 mg/dL (8-23) 09/01/21 10:11 Creatinine 0.9 mg/dL (0.7-1.2) 09/01/21 10:11 GFR Calculation 83.7 mL/min (90-130) L 09/01/21 10:11 Glucose 124 mg/dL (65-115) H 09/01/21 10:11 Calculated Osmolality 278 mOsm/kg (285-295) L 09/01/21 10:11 Calcium 9.4 mg/dL (8.5-10.5) 09/01/21 10:11 Total Bilirubin 0.4 mg/dL (0.15-1.2) 09/01/21 10:11 AST 22 U/L (0-40) 09/01/21 10:11 ALT 10 U/L (0-41) 09/01/21 10:11 Alkaline Phosphatase 104 IU/L (40-130) 09/01/21 10:11 Troponin T Baseline 6 ng/L (0-15) 09/01/21 10:11 NT-Pro-B Natriuret Pep 9 pg/mL (0-125) 09/01/21 10:11 Total Protein 6.2 g/dL (6.6-8.7) L 09/01/21 10:11 Albumin 4.2 g/dL (3.5-5.2) 09/01/21 10:11 Globulin 2.0 g/dL (1.3-4.6) 09/01/21 10:11 Urine Color Yellow (Yellow) 09/01/21 10:35 Urine Appearance Clear (CLEAR) 09/01/21 10:35 Urine pH 6 (5-7) 09/01/21 10:35 Ur Specific [place] 1.005 (1.005-1.030) 09/01/21 10:35 Urine Protein Neg (Negative) 09/01/21 10:35 Urine Glucose (UA) Norm (Normal) 09/01/21 10:35 Urine Ketones Negative (Negative) 09/01/21 10:35 Urine Blood Neg (Negative) 09/01/21 10:35 Urine Nitrate Negative (Negative) 09/01/21 10:35 Urine Bilirubin Neg (Negative) 09/01/21 10:35 Urine Urobilinogen Norm mg/dL (Negative) 09/01/21 10:35 Ur Leukocyte Esterase Negative (Negative) 09/01/21 10:35 Urine RBC None /hpf (0-2) 09/01/21 10:35 Urine WBC None /hpf (0-5) 09/01/21 10:35 Ur Squamous Epith Cells Rare /hpf (0-5) 09/01/21 10:35 Amorphous Sediment Not Reportable 09/01/21 10:35 Urine Bacteria Trace /hpf (NONE) 09/01/21 10:35 SARS-CoV-2 Ag (Rapid) Negative (Negative) 09/01/21 10:35 Imaging Data CXR: My impression: Chest x-ray shows nothing acute. No infiltrates. No cardiomegaly. No pulmonary edema. Radiologist's impression: PROCEDURE INFORMATION: Exam: XR Chest Exam date and time: 09/01/2021 10:26 AM Age: 70 years old Clinical indication: Dyspnea TECHNIQUE: Imaging protocol: XR of the chest. Views: 1 view. COMPARISON: CR XR chest 1V portable [id number] 12/10/2019 8:44 AM FINDINGS: Lungs: Unchanged mild increased interstitial markings at the left lateral lung base, consistent with scarring. No consolidation. Pleural spaces: Unremarkable. No pleural effusion. No pneumothorax. Heart/Mediastinum: Unremarkable. No cardiomegaly. Vasculature: Mild unfolding of the descending aorta. Bones/joints: Unremarkable. XR/XR chest 1V portable [id number] IMPRESSION: No acute findings. ? Dictated By: Juan Diego Dobson MD Signed By: Juan Diego Dobson MD Signed Date/Time: 09/01/[address] Head: My impression: I have viewed CT scan and showed nothing acute. Awaiting radiology interpretation. Radiologist's impression: PROCEDURE INFORMATION: Exam: CT Head Without Contrast Exam date and time: 09/01/2021 10:26 AM Age: 70 years old Clinical indication: Pain; Headache; Additional info: Vertigo; Frontal headache; H/o TIA; On plavix TECHNIQUE: Imaging protocol: Computed tomography of the head without contrast. Radiation optimization: All CT scans at this facility use at least one of these dose optimization techniques: automated exposure control; mA and/or kV adjustment per patient size (includes targeted exams where dose is matched to clinical indication); or iterative reconstruction. COMPARISON: CT head wo con* [id number] 12/10/2019 8:03 AM RADIATION DOSE METRICS: Total DLP (mGy-cm): 1666.85 FINDINGS: Brain: No intracranial hemorrhage. Punctate calcification within the right ty (see coronal image 21 series 601) appears similar on December 10, 2019 comparison exam. Normal rust-white differentiation with no evidence of edema or territorial infarct. No abnormal mass effect or midline shift. No extra-axial fluid collection. Cerebral ventricles: No ventriculomegaly. Paranasal sinuses: Visualized sinuses are unremarkable. No fluid levels. Mastoid air cells: Visualized mastoid air cells are well aerated. Bones/joints: No acute fracture. Soft tissues: Unremarkable. CT/CT head wo con* [id number] IMPRESSION: No acute findings. ? Dictated By: Juan Diego Dobson MD Signed By: Juan Diego Dobson MD Signed Date/Time: 09/01/21 1151 EKG Data EKG 1: Interpretation: EKG impression shows normal sinus rhythm with a heart rate of 66. Normal ID interval. Normal QRS. Normal ST segment. Normal T waves. Normal axis. Normal QT interval. Impression normal EKG. Discharge Plan Discharge Clinical Impression: Mild shortness of breath, Frontal headache, Vertigo Condition: Stable Prescriptions: New meclizine 25 mg tablet 25 mg PO TID PRN (Reason: dizziness) Qty: 15 1RF No Action pramipexole [Mirapex] 0.5 mg tablet 0.5 mg PO BID 0RF cyclobenzaprine 10 mg tablet 10 mg PO DAILY 0RF finasteride 5 mg tablet 5 mg PO DAILY 0RF primidone 50 mg tablet 50 mg PO DAILY 0RF folic acid 1 mg tablet 1 mg PO DAILY 0RF bupropion HCl 300 mg tablet extended release 24 hr 300 mg PO QAM 0RF risperidone [Risperdal] 1 mg tablet 1 mg PO DAILY 0RF carbidopa-levodopa [Sinemet] 25-100 mg tablet 1 tab PO TID Qty: 270 3RF aspirin [Adult Aspirin Regimen] 81 mg tablet,delayed release (DR/EC) 81 mg PO DAILY 0RF Chantix 1 mg tablet 1 mg PO BID PRN (Reason: Stop smoking) Qty: 60 5RF Rx Instructions: Week 1: 1/2 in the morning with breakfast Week 2: 1 in the morning with breakfast [place] in the morning and 1 prior to 4:00 was a snack. Never after 4 PM. Never on an empty stomach. Vitamin C 1,000 mg Tablet 500 mg PO DAILY 0RF Vitamin B-12 2,500 mcg Tablet, Sublingual 2,500 mcg SUBLINGUAL DAILY 0RF Plavix 75 mg tablet 75 mg PO DAILY 30 Days Qty: 30 0RF simvastatin 20 mg tablet 40 mg PO BEDTIME 30 Days Qty: 60 0RF lisinopril 10 mg tablet 10 mg PO DAILY 30 Days Qty: 30 0RF Referrals: Stan Pickett [Primary Care Provider] - Discharge Diet: Usual diet Discharge Activity: Increase activity as tolerated Patient Instructions: Vertigo (ED), Viral Syndrome (ED), Dyspnea (ED), General Headache (ED) Activity Restrictions/Additional Instructions: May take Tylenol as needed for pain. Follow-up with your family doctor as needed. Rest. Coding Level of Care Code ED Skein Washer for Roxann 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
[2021-09-01 10:56] LABS: Add Urine Culture? No; Bacteria Urine TRACE /hpf; Bilirubin Urine Neg (Negative); Blood Urine Neg (Negative); Glucose Urine UA Norm (Normal); Ketones Urine Negative (Negative); Leukocyte Esterase Urine Negative (Negative); Nitrate Urine Negative (Negative); Protein Urine Neg (Negative); Specific Gravity, Urine 1.005 (1.005-1.030); Squamous Epithelial Cell Urine RARE /hpf (0-5); Urine Appearance Clear (CLEAR); Urine Color Yellow (Yellow); Urobilinogen Urine Norm (Negative); pH Urine 6 (5-7)
[2021-09-01 11:08] LABS: Basophils % 0.4 %; Eosinophils # 0.1 10^3/uL (0.0-0.8); Eosinophils % 1.2 %; Hematocrit 45.4 % (42.0-52.0); Hemoglobin 14.9 g/dL (11.7-16.6); Lymphocytes # 3.8 10^3/uL (0.8-4.8); Lymphocytes % 37.2 %; Mean Corpuscular HGB Conc 32.8 g/dL (30.0-36.0); Mean Corpuscular Volume 97.6 fl (80-94); Mean Platelet Volume 10.1 fL (7.4-10.4); Monocytes # 0.8 10^3/uL (0.2-0.9); Monocytes % 8.2 %; Neutrophils # 5.36 10^3/uL (1.8-7.7); Neutrophils % 52.6 %; Nucleated Red Blood Cells % 0 %; Platelet Count 217 10^3/cmm (130-400); Red Blood Count 4.65 10^6/uL (4.1-5.3); Red Cell Distribution Width 12.4 % (12.1-15.1); White Blood Count 10.2 10^3/uL (4.0-10.0)
[2021-09-01 11:13] LABS: SARS Covid-2 Antigen Negative (Negative)
[2021-09-01 11:21] LABS: Troponin(5th) Baseline 6 ng/L (0-15)
[2021-09-01 11:30] LABS: Alanine Aminotransferase 10 U/L (0-41); Albumin Level 4.2 g/dL (3.5-5.2); Alkaline Phosphatase 104 IU/L (40-130); Anion Gap 14.2 (5-19); Aspartate Amino Transferase 22 U/L (0-40); Blood Urea Nitrogen 10 mg/dL (8-23); Calcium 9.4 mg/dL (8.5-10.5); Carbon Dioxide 21 mmol/L (22-29); Chloride 103 mmol/L (98-107); Glomerular Filtration Rate 83.7 mL/min (90-130); Glucose 124 mg/dL (65-115); NT Pro B Type Natriuretic Pept 9 pg/mL (0-125); Osmolality Calculated 278 mOsm/kg (285-295); Potassium 4.2 mmol/L (3.5-5.1); Sodium 134 mmol/L (136-145); Total Bilirubin 0.4 mg/dL (0.15-1.2); Total Protein 6.2 g/dL (6.6-8.7)
[2021-09-01 11:31] VITALS: BP 138/85; PULSE 63; RESP 20; O2SAT 97
--- NOTE | 2021-09-01 11:40 | ECG_ITS ---
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 Measurements Intervals [place] Rate: 66 P: 21 ID: [id number] QRS: 18 QRSD: 87 T: 30 QT: 392 QTc: 412 Interpretive Statements SINUS RHYTHM NONSPECIFIC T-WAVE ABNORMALITY Compared to ECG 12/10/2019 09:07:44 T-wave abnormality now present Sinus bradycardia no longer present Electronically Signed On 09-02-2021 12:17:54 INGOT SUPERVISOR by Octavio Johnson M.D. [id number]
[2021-09-01 12:00] VITALS: PULSE 65; RESP 20; O2SAT 97
[2021-09-01 12:05] VITALS: BP 140/75; PULSE 61; O2SAT 97
== END 2021-09-01 12:09 | disposition home or self-care (01) ==
PROVIDERS: Emergency Provider Family Medicine; PCP Family Medicine
DX: G44.89 Other headache syndrome (principal); R06.02 Shortness of breath; R42 Dizziness and giddiness; Z79.02 Long term (current) use of antithrombotics/antiplatelets; Z79.82 Long term (current) use of aspirin; I25.10 Atherosclerotic heart disease of native coronary artery without angina pectoris; Z86.73 Personal history of transient ischemic attack (TIA), and cerebral infarction without residual deficits; E78.5 Hyperlipidemia, unspecified; I10 Essential (primary) hypertension; G20 Parkinson's disease; Z20.822 Contact with and (suspected) exposure to COVID-19
CPT/HCPCS: 70450; 71045; 80053; 81001; 83880; 84484; 85025; 87040; 87086; 87426; 93005; 99283

== ENCOUNTER 2022-02-15 03:30 | Emergency (ER) | payer MEDICARE, SELFPAY ==
[2022-02-15 03:38] VITALS: BP 133/86; PULSE 78; RESP 20; TEMP 36.6; O2SAT 95; BMI 31.5
--- NOTE | 2022-02-15 03:44 | CTR_ITS ---
PROCEDURE INFORMATION: Exam: CT Abdomen And Pelvis With Contrast Exam date and time: 02/15/2022 4:30 AM Age: 71 years old Clinical indication: Abdominal pain; Generalized; Patient HX: C/O diffuse abd pain with constipation. ; Additional info: Diffuse abdominal pain. TECHNIQUE: Imaging protocol: Computed tomography of the abdomen and pelvis with contrast. Radiation optimization: All CT scans at this facility use at least one of these dose optimization techniques: automated exposure control; mA and/or kV adjustment per patient size (includes targeted exams where dose is matched to clinical indication); or iterative reconstruction. Contrast material: OMNI 350; Contrast volume: 80 ml; Contrast route: INTRAVENOUS (IV); Other contrast: Oral, READI CAT, 100 ML; COMPARISON: CT angio chest [id number] 07/17/2017 8:35 AM RADIATION DOSE METRICS: Total DLP (mGy-cm): 990.54 FINDINGS: Lungs: Minimal dependent bibasilar atelectasis. Heart: The visualized heart is within normal limits for size. There is no evidence of pericardial abnormality. Liver: The liver is normal in size and contour. Gallbladder and bile ducts: The gallbladder is distended with normal wall thickness and does not demonstrate calcified gallstones. No intra- or extra-hepatic biliary ductal dilatation. Pancreas: The pancreas appears normal. Spleen: The spleen appears normal. Adrenal glands: The adrenals appear normal. Kidneys and ureters: The kidneys enhance symmetrically and empty into non-dilated ureters. Stomach and bowel: The stomach appears unremarkable. The small bowel loops are not abnormally dilated. The large bowel loops are not abnormally dilated. Significant colonic diverticulosis noted. No signs of acute diverticulitis. Appendix: The appendix appears normal. Intraperitoneal space: No ascites or significant fluid collection. Vasculature: The aorta is nonaneurysmal. Circumaortic left renal veins. Lymph nodes: There are no enlarged lymph nodes. Urinary bladder: The bladder is distended and demonstrates no focal contour abnormality. Reproductive: The prostate is unremarkable. The seminal vesicles are unremarkable. Bones/joints: Multilevel degenerative changes in the spine. Soft tissues: 2.7 cm fat containing umbilical hernia. CT/CT abdomen pelvis w con* [id number] IMPRESSION: No acute abdominopelvic abnormality identified.
[2022-02-15 03:55] LABS: Basophils % 0.2 %; Eosinophils # 0.1 10^3/uL (0.0-0.8); Eosinophils % 0.7 %; Hematocrit 45.5 % (42.0-52.0); Hemoglobin 15.2 g/dL (11.7-16.6); Lymphocytes # 4.6 10^3/uL (0.8-4.8); Lymphocytes % 28.7 %; Mean Corpuscular HGB Conc 33.4 g/dL (30.0-36.0); Mean Corpuscular Hemoglobin 31.5 pg (28.0-34.0); Mean Corpuscular Volume 94.2 fl (80-94); Mean Platelet Volume 9.7 fL (7.4-10.4); Monocytes # 1.1 10^3/uL (0.2-0.9); Monocytes % 6.6 %; Neutrophils # 10.25 10^3/uL (1.8-7.7); Neutrophils % 63.4 %; Nucleated Red Blood Cells % 0 %; Platelet Count 233 10^3/cmm (130-400); Red Blood Count 4.83 10^6/uL (4.1-5.3); Red Cell Distribution Width 12.8 % (12.1-15.1); White Blood Count 16.2 10^3/uL (4.0-10.0)
--- NOTE | 2022-02-15 04:17 | ED_ITS ---
HPI - Abdominal Pain General: Chief Complaint: Abdominal Pain Stated Complaint: ABD Pain Time Seen by Provider: 02/15/22 03:40 History of Present Illness: Patient is a 71-year-old male presenting today with abdominal pain. Patient notes onset of symptoms over the last 3 days. Patient notes he has been attempting to have a bowel movement. But has been unsuccessful. He has taken MiraLAX with no improvement in his symptoms. He notes this is happened to him before. But usually not nearly as bad. He notes that his abdomen feels distended. Feels like he may vomit. He denies any significant abdominal surgeries. Denies fevers or chills. He denies cough or shortness of breath. He denies chest pain. He denies dysuria or polyuria. He denies black or bloody stools. Review of Systems General: Reports: 10 or more systems reviewed and unremarkable except in HPI and below PFS ED [facility]: Medical History (Updated 02/15/22 @ 05:42 by Israel Espino DO) CAD (coronary artery disease) CVA (cerebral vascular accident) -Reports remote history of CVA in , does not recall requiring intervention at that time, no residual impairment, affected left side. Has been on Plavix since then -Now presenting with noted left upper extremity weakness, left facial droop, reported slurred speech which seems to have resolved suspicious for CVA; initial NIHSS-5 -CT head with no acute abnormality noted; CTA H/N negative for significant stenosis -Echo: EF=60%, G1DD, no RWMA, mild AR, mild [place], no baseline on record -telemetry monitoring -monitor vital signs; currently normotensive; permissive HTN x 24 hrs -on plavix, statin, aspirin -fall/aspiration precautions -passed bedside nursing dysphagia screening -PT/OT/ST evaluations appreciated -infection ruled out given no fever, no leukocytosis, UA/CXR negative -UDS negative -noted A1c, TSH, lipid panel Dyslipidemia -noted lipid panel -on statin Hypertension -hold oral hypertensives for permissive HTN x 24 hrs; can resume on d/c -VSS Morbid obesity -BMI-36 kg/m2 Parkinsonian syndrome -follows up with Dr. Amador -continue meds -reports that tremors and jerking movements are most prominent at night Surgical History H/O bone graft R femur Family History Mother Cancer colon Stroke Brother Cancer colon/gastric Grandfather Cancer Denies family history of Diabetes CAD (coronary artery disease) Hypertension Social History Smoking and tobacco status: never smoked Alcohol intake: current Alcohol intake frequency: holidays/special occasions only Household members: spouse Housing: House Marital status: Current occupational status: retired History of recent travel: No Physical Exam Const: COMMON NORMALS: no acute distress, patient oriented x3 and alert GENERAL APPEARANCE: cooperative ORIENTATION/CONSCIOUSNESS: Yes awake, Yes oriented to person, Yes oriented to place and Yes oriented to time HENMT: COMMON NORMALS: normocephalic, atraumatic, external ears normal, Normal external nose present and moist oral mucous membranes HEAD & SCALP: normal to inspection, normocephalic and atraumatic NOSE: Normal external nose present GENERAL EAR: hearing grossly impaired EXTERNAL EAR: Yes external ears normal Eye: COMMON NORMALS: Equal, round and reactive pupils present, EOMs intact bilaterally, conjunctivae normal and no scleral icterus GENERAL EYE: appearance normal, both eyes and all related structures EYELID: eyelids normal CONJUNCTIVA: Yes conjunctivae normal SCLERA: sclerae normal PUPIL: Yes Equal, round and reactive pupils present Neck/C-Spine: COMMON NORMALS: full ROM, supple and no JVD GENERAL: Yes normal visual inspection Lymph: LYMPHATIC: no lymphadenopathy noted and no lymphedema noted Chest: COMMONS NORMALS: normal inspection of the chest Resp: COMMON NORMALS: normal respiratory effort, No retractions and No use of accessory muscles Cardio: COMMON NORMALS: no JVD, regular rate and regular rhythm RATE: regular rate RHYTHM: regular rhythm GI: COMMON NORMALS: Normal to inspection, nondistended, normoactive bowel sounds present : COMMON NORMALS: Yes no CVA tenderness BLADDER/KIDNEY EXAM: Yes no CVA tenderness Back/Pelvis: COMMON NORMALS: no CVA tenderness and thoracic and lumbar spine normal to inspection Extremity: COMMON NORMALS: normal to inspection, full ROM and capillary refill normal GENERAL: Yes normal exam except as noted Neuro: COMMON NORMALS: patient oriented x3, CN's II-XII intact bilaterally, moves all extremities, no focal motor deficits, no sensory deficits noted and gait normal SENSORIUM/ORIENTATION: Yes alert, Yes oriented to person, Yes oriented to place and Yes oriented to time Psych: COMMON NORMALS: mental status grossly normal, Normal thought process present, cooperative and normal affect THOUGHT PROCESS: Normal thought process present Skin: COMMON NORMALS: no rashes or lesions noted and no wounds GENERAL SKIN EXAM: no rashes or lesions noted Course Vital Signs: Vital signs: Vital Signs Temperature 97.9 F 02/15/22 03:38 Pulse Rate 78 02/15/22 03:38 Respiratory Rate 20 H 02/15/22 03:38 Blood Pressure 133/86 02/15/22 03:38 Pulse Oximetry 95 02/15/22 03:38 Oxygen Delivery Me thod 02/15/22 03:38 MDM - Abdominal Pain Medical Decision Making Patient is a 71-year-old male presenting today with decreased bowel movements. Diffuse abdominal tenderness on exam. As well as umbilical hernias present. CBC with significant leukocytosis. We will proceed with CT abdomen pelvis for further evaluation. CT with evidence of diverticulosis without evidence of div erticulitis. No evidence of significant stool burden or stool impaction. Will refer on to gastroenterology for further evaluation management. Patient was given strict return precautions and recommended outpatient follow-up. Lab Data : 02/15/22 03:50 02/15/22 03:50 Labs/Radiology: Radiology Impressions Abdomen/Pelvis CT 02/15/22 03:44 IMPRESSION: No acute abdominopelvic abnormality identified. Laboratory Results WBC 16.2 10^3/uL (4.0-10.0) H 02/15/22 03:50 RBC 4.83 10^6/uL (4.1-5.3) 02/15/22 03:50 Hgb 15.2 g/dL (11.7-16.6) 02/15/22 03:50 Hct 45.5 % (42.0-52.0) 02/15/22 03:50 MCV 94.2 fl (80-94) H 02/15/22 03:50 MCH 31.5 pg (28.0-34.0) 02/15/22 03:50 MCHC 33.4 g/dL (30.0-36.0) 02/15/22 03:50 RDW 12.8 % (12.1-15.1) 02/15/22 03:50 Plt Count 233 10^3/cmm (130-400) 02/15/22 03:50 MPV 9.7 fL (7.4-10.4) 02/15/22 03:50 Neut % (Auto) 63.4 % 02/15/22 03:50 Lymph % (Auto) 28.7 % 02/15/22 03:50 Union % (Auto) 6.6 % 02/15/22 03:50 Eos % (Auto) 0.7 % 02/15/22 03:50 Baso % (Auto) 0.2 % 02/15/22 03:50 Neut # (Auto) 10.25 10^3/uL (1.8-7.7) H 02/15/22 03:50 Lymph # (Auto) 4.6 10^3/uL (0.8-4.8) 02/15/22 03:50 Union # (Auto) 1.1 10^3/uL (0.2-0.9) H 02/15/22 03:50 Eos # (Auto) 0.1 10^3/uL (0.0-0.8) 02/15/22 03:50 Baso # (Auto) 0.0 10^3/uL (0.0-0.1) 02/15/22 03:50 Nucleated RBC % (auto) 0 % 02/15/22 03:50 Nucleated RBCs # 0.0 /100WBC 02/15/22 03:50 Sodium 138 mmol/L (136-145) 02/15/22 03:50 Potassium 4.0 mmol/L (3.5-5.1) 02/15/22 03:50 Chloride 101 mmol/L (98-107) 02/15/22 03:50 Carbon Dioxide 26 mmol/L (22-29) 02/15/22 03:50 Anion Gap 15.0 (5-19) 02/15/22 03:50 BUN 10 mg/dL (8-23) 02/15/22 03:50 Creatinine 1.1 mg/dL (0.7-1.2) 02/15/22 03:50 GFR Calculation 66.2 mL/min (90-130) L 02/15/22 03:50 Glucose 142 mg/dL (65-115) H 02/15/22 03:50 Calculated Osmolality 287 mOsm/kg (285-295) 02/15/22 03:50 Calcium 9.2 mg/dL (8.5-10.5) 02/15/22 03:50 Total Bilirubin 0.8 mg/dL (0.15-1.2) 02/15/22 03:50 AST 21 U/L (0-40) 02/15/22 03:50 ALT < 5 U/L (0-41) 02/15/22 03:50 Alkaline Phosphatase 114 IU/L (40-130) 02/15/22 03:50 Total Protein 6.6 g/dL (6.6-8.7) 02/15/22 03:50 Albumin 3.8 g/dL (3.5-5.2) 02/15/22 03:50 Globulin 2.8 g/dL (1.3-4.6) 02/15/22 03:50 Lipase 44 U/L (13-60) 02/15/22 03:50 Discharge Plan Discharge Patient Disposition: Home Clinical Impression: Abdominal pain, Diverticulosis, Hernia, umbilical Condition: Stable Prescriptions: No Action pramipexole [Mirapex] 0.5 mg tablet 0.5 mg PO BID cyclobenzaprine 10 mg tablet 10 mg PO DAILY finasteride 5 mg tablet 5 mg PO DAILY primidone 50 mg tablet 50 mg PO DAILY folic acid 1 mg tablet 1 mg PO DAILY bupropion HCl 300 mg tablet extended release 24 hr 300 mg PO QAM risperidone [Risperdal] 1 mg tablet 1 mg PO DAILY aspirin [Adult Aspirin Regimen] 81 mg tablet,delayed release (DR/EC) 81 mg PO DAILY Chantix 1 mg tablet 1 mg PO BID PRN (Reason: Stop smoking) Qty: 60 5RF Rx Instructions: Week 1: 1/2 in the morning with breakfast Week 2: 1 in the morning with breakfast Ongoin in the morning and 1 prior to 4:00 was a snack. Never after 4 PM. Never on an empty stomach. carbidopa-levodopa [Sinemet] 25-100 mg tablet 1 tab PO TID Qty: 270 3RF meclizine 25 mg tablet 25 mg PO TID PRN (Reason: dizziness) Qty: 15 1RF Vitamin C 1,000 mg Tablet 500 mg PO DAILY Vitamin B-12 2,500 mcg Tablet, Sublingual 2,500 mcg SUBLINGUAL DAILY Plavix 75 mg tablet 75 mg PO DAILY 30 Days Qty: 30 0RF simvastatin 20 mg tablet 40 mg PO BEDTIME 30 Days Qty: 60 0RF lisinopril 10 mg tablet 10 mg PO DAILY 30 Days Qty: 30 0RF Discharge Orders: Discharge ED (Routine); Ordered 02/15/22 Ordered By: Israel Espino Referrals: Stan Pickett [Primary Care Provider] - Vikash Ponce MD [Physician] - 4-7 days (For colonoscopy, umbilical hernia) Discharge Diet: Usual diet Discharge Activity: Resume usual activity Patient Instructions: Abdominal Pain - Adult, Abdominal Pain (ED), Opioid Safety Coding Level of Care Code ED Urologic Nurse for Chg 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
[2022-02-15 04:19] LABS: Alanine Aminotransferase < 5 U/L (0-41); Albumin Level 3.8 g/dL (3.5-5.2); Alkaline Phosphatase 114 IU/L (40-130); Aspartate Amino Transferase 21 U/L (0-40); Blood Urea Nitrogen 10 mg/dL (8-23); Calcium 9.2 mg/dL (8.5-10.5); Carbon Dioxide 26 mmol/L (22-29); Chloride 101 mmol/L (98-107); Creatinine Clr Calc Pharmacy 73.9914; Globulin 2.8 g/dL (1.3-4.6); Glomerular Filtration Rate 66.2 mL/min (90-130); Glucose 142 mg/dL (65-115); Lipase 44 U/L (13-60); Osmolality Calculated 287 mOsm/kg (285-295); Sodium 138 mmol/L (136-145); Total Bilirubin 0.8 mg/dL (0.15-1.2); Total Protein 6.6 g/dL (6.6-8.7)
[2022-02-15] MEDS: iohexol 350 mg/mL 100 mL Btl IV (04:43)
[2022-02-15] MEDS: barium sulfate 450 mL Oral Susp PO (04:48)
== END 2022-02-15 05:59 | disposition home or self-care (01) ==
PROVIDERS: Emergency Provider Emergency Medicine; PCP Family Medicine
DX: K57.90 Diverticulosis of intestine, part unspecified, without perforation or abscess without bleeding (principal); K42.9 Umbilical hernia without obstruction or gangrene; Z79.02 Long term (current) use of antithrombotics/antiplatelets; Z79.82 Long term (current) use of aspirin; I25.10 Atherosclerotic heart disease of native coronary artery without angina pectoris; Z86.73 Personal history of transient ischemic attack (TIA), and cerebral infarction without residual deficits; E78.5 Hyperlipidemia, unspecified; I10 Essential (primary) hypertension; G20 Parkinson's disease
CPT/HCPCS: 74177; 80053; 83690; 85025; 99284; Q9967

== ENCOUNTER → 2022-02-20 14:08 | Outpatient (BNVA) | payer MEDICARE, SELFPAY | PROVIDERS: PCP Family Medicine; Visit Provider Surgery | DX: R10.30 Lower abdominal pain, unspecified (principal) | CPT/HCPCS: 99203 ==

== ENCOUNTER → 2022-07-15 13:31 | Outpatient (BNVA) | payer MEDICARE, SELFPAY | PROVIDERS: PCP Family Medicine; Visit Provider Specialist | DX: G20 Parkinson's disease (principal); R51.9 Headache, unspecified; G25.81 Restless legs syndrome; F32.A Depression, unspecified; F41.9 Anxiety disorder, unspecified | CPT/HCPCS: 99213 ==

== ENCOUNTER 2022-12-16 18:39 | Emergency (ER) | payer MEDICARE, SELFPAY ==
[2022-12-16 18:51] VITALS: BP 141/84; PULSE 74; RESP 14; TEMP 36.4; O2SAT 97; BMI 31.7
--- NOTE | 2022-12-16 18:57 | W.ED.WOUNDLC ---
HPI - Wound/Laceration General: Chief Complaint: Wound/Laceration Stated Complaint: right thumb lac Time Seen by Provider: 12/16/22 18:56 History of Present Illness: 71-year-old male patient comes in today for complaints of laceration to the posterior right thumb that occurred prior to arrival. Patient was using a hack saw when it slipped causing him to lacerate the posterior proximal part of the right thumb. Patient has normal range of motion of the thumb. Patient cannot recall his last tetanus. Patient does take Plavix routinely. Bleeding is controlled at this time. Associated symptoms: Denies fever(s) Review of Systems Const: Denies: fever(s) Card: Denies: chest pain Resp: Denies: dyspnea Musc: Reports: extremity pain Skin/Breast: Reports: new lesions PFSH ED PFSH: Medical History (Updated 12/16/22 @ 19:24 by ADINA Fournier) CAD (coronary artery disease) CVA (cerebral vascular accident) -Reports remote history of CVA in , does not recall requiring intervention at that time, no residual impairment, affected left side. Has been on Plavix since then -Now presenting with noted left upper extremity weakness, left facial droop, reported slurred speech which seems to have resolved suspicious for CVA; initial NIHSS-5 -CT head with no acute abnormality noted; CTA H/N negative for significant stenosis -Echo: EF=60%, G1DD, no RWMA, mild AR, mild [place], no baseline on record -telemetry monitoring -monitor vital signs; currently normotensive; permissive HTN x 24 hrs -on plavix, statin, aspirin -fall/aspiration precautions -passed bedside nursing dysphagia screening -PT/OT/ST evaluations appreciated -infection ruled out given no fever, no leukocytosis, UA/CXR negative -UDS negative -noted A1c, TSH, lipid panel Dyslipidemia -noted lipid panel -on statin Hypertension -hold oral hypertensives for permissive HTN x 24 hrs; can resume on d/c -VSS Morbid obesity -BMI-36 kg/m2 Parkinsonian syndrome -follows up with Dr. Amador -continue meds -reports that tremors and jerking movements are most prominent at night Surgical History H/O bone graft R femur Family History Mother Cancer colon Stroke Brother Cancer colon/gastric Grandfather Cancer Denies family history of Diabetes CAD (coronary artery disease) Hypertension Social History Smoking and tobacco status: former smoker Alcohol intake: current Alcohol intake frequency: holidays/special occasions only Substance/Drug Use: never Household members: spouse Housing: House Marital status: Current occupational status: retired Physical Exam Const: COMMON NORMALS: alert HENMT: COMMON NORMALS: normocephalic HEAD & SCALP: normocephalic Neck/C-Spine: COMMON NORMALS: full ROM Resp: COMMON NORMALS: normal respiratory effort Cardio: COMMON NORMALS: regular rate and regular rhythm RATE: regular rate RHYTHM: regular rhythm Back/Pelvis: COMMON NORMALS: thoracic and lumbar spine normal to inspection Extremity: RIGHT UPPER EXTREMITY: Yes hand & digits (4 cm laceration to the posterior right thumb, normal range of motion) Right hand and digits: Yes inspection, Yes palpation and Yes ROM exam EXTREMITY IMAGE (FRONT): 1. 4 cm laceration Neuro: SENSORIUM/ORIENTATION: Yes alert Procedures Laceration Laceration 1: Site: hand Side (If applicable): right Size (cm): 4 Description: linear Depth: simple, single layer Local Anesthetic: lidocaine 1% Amount of anesthesia used (mL): 4 Pre-repair: wound explored and irrigated extensively Skin layer closed with: nylon Size (cm): 4-0 Number of sutures: 5 Technique: horizontal mattress Course Vital Signs: Vital signs: Vital Signs Temperature 97.5 F L 12/16/22 18:51 Pulse Rate 74 12/16/22 18:51 Respiratory Rate 14 12/16/22 18:51 Blood Pressure 141/84 12/16/22 18:51 Pulse Oximetry 97 12/16/22 18:51 Oxygen Delivery Me thod Room Air 12/16/22 18:51 MDM - Wound/Laceration Medical Decision Making 71-year-old male patient comes in for injury to the posterior right thumb. On exam patient has a 4 cm laceration. Normal cap refill and normal range of motion is noted. Incident occurred just prior to arrival. Vital signs are normal. Differential diagnosis includes but not limited to laceration, foreign body, fracture, need for prophylaxis tetanus, need for prophylaxis antibiotic. Patient cannot recall his last tetanus and it was updated. Patient be placed on cephalexin due to the nature of injury. Wound was repaired after thorough irrigation. No foreign body or fractures were noted. Patient tolerated procedure well. Recommended follow-up with primary care in 1 week for recheck. Recommend return to the ED for new concerns. Discharge Plan Discharge Patient Disposition: Home Clinical Impression: Laceration of thumb, right Qualifiers: Encounter type: initial encounter Damage to nail status: without damage Foreign body presence: without foreign body Qualified Code(s): S61.011A - Laceration without foreign body of right thumb without damage to nail, initial encounter Condition: Stable Prescriptions: New cephalexin 500 mg capsule 500 mg PO BID 7 Days Qty: 14 0RF No Action cyclobenzaprine 10 mg tablet 10 mg PO DAILY finasteride 5 mg tablet 5 mg PO DAILY folic acid 1 mg tablet 1 mg PO DAILY bupropion HCl 300 mg tablet extended release 24 hr 300 mg PO QAM risperidone [Risperdal] 1 mg tablet 1 mg PO DAILY carbidopa-levodopa 25-100 mg tablet See Rx Instructions .ROUTE .COMPLEX Qty: 360 3RF Dose Instruction: TAKE 1 TABLET THREE TIMES DAILY Rx Instructions: TAKE 1 TABLET FOUR TIMES DAILY pramipexole [Mirapex] 0.5 mg tablet 0.5 mg PO BID Qty: 180 3RF primidone 50 mg tablet 50 mg PO DAILY 90 Days Qty: 90 3RF aspirin [Adult Aspirin Regimen] 81 mg tablet,delayed release (DR/EC) 81 mg PO DAILY Chantix 1 mg tablet 1 mg PO BID PRN (Reason: Stop smoking) Qty: 60 5RF Rx Instructions: Week 1: 1/2 in the morning with breakfast Week 2: 1 in the morning with breakfast Ongoin in the morning and 1 prior to 4:00 was a snack. Never after 4 PM. Never on an empty stomach. meclizine 25 mg tablet 25 mg PO TID PRN (Reason: dizziness) Qty: 15 1RF Vitamin C 1,000 mg Tablet 500 mg PO DAILY Vitamin B-12 2,500 mcg Tablet, Sublingual 2,500 mcg SUBLINGUAL DAILY Plavix 75 mg tablet 75 mg PO DAILY 30 Days Qty: 30 0RF simvastatin 20 mg tablet 40 mg PO BEDTIME 30 Days Qty: 60 0RF lisinopril 10 mg tablet 10 mg PO DAILY 30 Days Qty: 30 0RF Discharge Orders: Discharge ED (Routine); Ordered 12/16/22 Ordered By: Raleigh Ashton Referrals: Stan Pickett [Primary Care Provider] - Discharge Diet: Usual diet Discharge Activity: Increase activity as tolerated Patient Instructions: Laceration (ED) Activity Restrictions/Additional Instructions: Keep wound clean and dry. It is important keep the wound as dry as possible for the next 48 hours. After that she can wash gently with mild soap and water and apply antibiotic ointment. Sutures need to come out in 7 to 10 days. Follow-up with primary care in 1 week for recheck. Return to ED for new concerns or worsening symptoms such as fever, increased redness and swelling, or severe pain. 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
[2022-12-16] MEDS: cephALEXin 500 mg Capsule PO (19:36)
[2022-12-16] MEDS: tetanus-dipt-pertussis 0.5 mL SDV IM (19:40)
== END 2022-12-16 19:41 | disposition home or self-care (01) ==
PROVIDERS: Emergency Provider Nurse Practitioner Family; PCP Family Medicine
DX: S61.011A Laceration without foreign body of right thumb without damage to nail, initial encounter (principal); W27.0XXA Contact with workbench tool, initial encounter
CPT/HCPCS: 90471; 90715; 99283

== ENCOUNTER → 2023-02-12 12:21 | Outpatient (BNVA) | payer MEDICARE, SELFPAY | PROVIDERS: PCP Family Medicine; Visit Provider Surgery | DX: Z98.890 Other specified postprocedural states (principal); R10.30 Lower abdominal pain, unspecified | CPT/HCPCS: 99202; 99214 ==

== ENCOUNTER 2023-03-05 07:47 | Day surgery (SDC) | payer MEDICARE, SELFPAY ==
[2023-03-03 10:23] VITALS: BMI 28.9
--- NOTE | 2023-03-05 07:46 | ANES.PREANE2 ---
Pre-Anesthetic Assessment Height/Weight: Height 1.75 m Weight 88.904 kg Preop Diagnosis: Change in bowel habits Operation Date: 03/05/23 08:40 Proposed Procedures p Colonoscopy 24017,R19.4, R10.30(Not Applicable) - Stan Quinones MD Familial anesthetic complications: None Was Beta Diane taken within 24 hours: N/A Was Clonidine taken within 24 hours: N/A Social Alcohol (Social) and Tobacco Fourth a pack a day pack(s) per day 60 pack years Exam alert, oriented x 3, clear to auscultation bilaterally and regular rate & rhythm Airway Submandibular: within normal limits Cervical ROM: Other (Decreased ROM) Mallampati: Class III Dentition: false History/ROS No significant history except as noted and No significant complaints Pulmonary Chronic Obstructive Pulmonary Disease and Exertional Dyspnea CV/HEM Arrythmia, Coronary Artery Disease, Deep Vein Thrombosis, Hypertension, Myocardial Infarction (No interventions) and Murmur EF= 60% per surgeon H&P None reported Hepatic Hepatitis Metabolic Hyperlipidemia Musc/el Osteoarthritis/DJD Parkinsons RLS Neuropsych Anxiety, Cerebrovascular Accident (No residual weakness per patient), Depression and Headache Anesthetic Plan ASA status: 3 Anesthesia: Anesthesia Evaluation, General and MAC Risk of > 500 ml blood loss (7ml/kg in children): No Medications/Allergies Home Medications Medication Instructions Recorded Confirmed Last Taken Type bupropion HCl 300 mg 24 hr tablet, 300 mg PO QAM 08/22/19 03/03/23 03/05/23 06:30 History extended release cyclobenzaprine 10 mg tablet 10 mg PO DAILY 08/22/19 03/03/23 03/04/23 History finasteride 5 mg tablet 5 mg PO DAILY 08/22/19 03/03/23 03/05/23 06:30 History folic acid 1 mg tablet 1 mg PO DAILY 08/22/19 03/03/23 03/04/23 History risperidone 1 mg tablet (Risperdal) 1 mg PO DAILY 08/22/19 03/03/23 03/04/23 History ascorbic acid (vitamin C) 1,000 mg 500 mg PO DAILY 12/10/19 03/03/23 03/04/23 History tablet (Vitamin C) cyanocobalamin (vitamin B-12) 2,500 mcg sublingual DAILY 12/10/19 03/03/23 03/04/23 History 2,500 mcg sublingual tablet (Vitamin B-12) clopidogrel 75 mg tablet (Plavix) 75 mg PO DAILY 30 days #30 tabs 12/11/19 03/03/23 02/28/23 Rx aspirin 81 mg tablet,delayed 81 mg PO DAILY 01/19/20 03/03/23 02/22/23 History release (Adult Aspirin Regimen) meclizine 25 mg tablet 25 mg PO TID PRN dizziness #15 tabs 09/01/21 03/03/23 Unknown Rx carbidopa 25 mg-levodopa 100 mg See Rx Instructions .Route 07/15/22 03/03/23 03/05/23 06:30 Rx tablet .COMPLEX #360 tabs pramipexole 0.5 mg tablet (Mirapex) 0.5 mg PO BID #180 tabs 07/15/22 03/03/23 03/04/23 Rx primidone 50 mg tablet 50 mg PO DAILY 90 days #90 tabs 07/15/22 03/03/23 03/04/23 Rx lisinopril 10 mg tablet 20 mg PO DAILY 02/02/23 03/03/23 03/05/23 06:30 History simvastatin 20 mg tablet 20 mg PO BEDTIME 02/02/23 03/03/23 03/04/23 History trazodone 50 mg tablet 50 mg PO DAILY 02/02/23 03/03/23 03/04/23 History polyethylene glycol 3350 17 4 g PO DAILY #238 grams 02/12/23 03/05/23 03/04/23 Rx gram/dose oral powder (Miralax) Allergies Allergy/AdvReac Type Severity Reaction Status Date / Time No Known Allergies Allergy Verified 02/12/23 12:52 [facility] Anesthesia Medical History (Updated 02/02/23 @ 12:28 by Josse Dozier DO) CAD (coronary artery disease) CVA (cerebral vascular accident) -Reports remote history of CVA in , does not recall requiring intervention at that time, no residual impairment, affected left side. Has been on Plavix since then -Now presenting with noted left upper extremity weakness, left facial droop, reported slurred speech which seems to have resolved suspicious for CVA; initial NIHSS-5 -CT head with no acute abnormality noted; CTA H/N negative for significant stenosis -Echo: EF=60%, G1DD, no RWMA, mild [place], mild [place], no baseline on record -telemetry monitoring -monitor vital signs; currently normotensive; permissive HTN x 24 hrs -on plavix, statin, aspirin -fall/aspiration precautions -passed bedside nursing dysphagia screening -PT/OT/ST evaluations appreciated -infection ruled out given no fever, no leukocytosis, UA/CXR negative -UDS negative -noted A1c, TSH, lipid panel Dyslipidemia -noted lipid panel -on statin Hypertension -hold oral hypertensives for permissive HTN x 24 hrs; can resume on d/c -VSS Morbid obesity -BMI-36 kg/m2 Parkinsonian syndrome -follows up with Dr. Amador -continue meds -reports that tremors and jerking movements are most prominent at night Surgical History H/O bone graft R femur Family History Mother Cancer colon Stroke Brother Cancer colon/gastric Grandfather Cancer Denies family history of Diabetes CAD (coronary artery disease) Hypertension Social History Smoking and tobacco status: current every day smoker cigarettes [ Other cigarette details: trying to quit, 1 pack per week] Alcohol intake: current Alcohol intake frequency: holidays/special occasions only Substance/Drug Use: never Household members: spouse Housing: House Marital status: Current occupational status: retired Data Anesthesia Cardiac Studies: Echocardiogram Ultrasound 12/10/19 Holter Monitor 01/24/20
[2023-03-05 08:10] VITALS: BP 126/79; PULSE 68; RESP 18; TEMP 36.5; O2SAT 96
[2023-03-05] MEDS: sodium chloride 0.9% 1,000 ML 30 ML IV (08:17)
--- NOTE | 2023-03-05 08:35 | W.PM.OPSUD ---
Surgery/Procedure H&P Update DATE OF PROCEDURE: March 05, 2023 DATE H&P PERFORMED: 02/12/23 H&P UPDATE INFORMATION: I have reviewed H&P completed within last 30 days, I have examined patient prior to procedure, No changes to prior documentation and H&P is in [facility] EMR on date indicated PREOP DIAGNOSIS: Screening for colorectal cancer PLANNED PROCEDURE: Operation Date: 03/05/23 08:40 Proposed Procedures p Colonoscopy 81919,R19.4, R10.30(Not Applicable) - Stan Quinones MD
[2023-03-05 09:20] VITALS: BP 120/64; PULSE 60; RESP 14; TEMP 36.1; O2SAT 95
[2023-03-05 09:32] VITALS: BP 125/72; PULSE 55; RESP 14; O2SAT 96
--- NOTE | 2023-03-05 16:10 | ANE.PACU2 ---
Inpatient post-anesthesia follow up: Airway intact: Yes Vital signs: Temperature 97 F Pulse Rate 55 Respiratory Rate 14 Blood Pressure 125/72 Pulse Oximetry 96 Oxygen Delivery Me thod Nasal Cannula Oxygen Flow Rate 3 Fraction of Inspir ed Oxygen Hydration adequate: Yes Nausea and vomiting: No Pain level: 2 Mental status: Baseline
== END 2023-03-05 10:10 | disposition home or self-care (01) ==
PROVIDERS: PCP Family Medicine; Visit Provider Surgery
PROC: 0DJD8ZZ Inspection of Lower Intestinal Tract, Via Natural or Artificial Opening Endoscopic (ICD-10-PCS; CPT 45378; principal; 2023-03-05 08:40)
DX: K57.30 Diverticulosis of large intestine without perforation or abscess without bleeding; I25.10 Atherosclerotic heart disease of native coronary artery without angina pectoris; E78.5 Hyperlipidemia, unspecified; I10 Essential (primary) hypertension; E66.01 Morbid (severe) obesity due to excess calories; Z68.28 Body mass index [BMI] 28.0-28.9, adult; F17.210 Nicotine dependence, cigarettes, uncomplicated; G20 Parkinson's disease; Z80.0 Family history of malignant neoplasm of digestive organs; R19.4 Change in bowel habit
CPT/HCPCS: 45378; J2704; J7030

== ENCOUNTER → 2023-03-26 12:30 | Outpatient (BNVA) | payer MEDICARE, SELFPAY | PROVIDERS: PCP Family Medicine; Visit Provider Surgery | DX: Z09 Encounter for follow-up examination after completed treatment for conditions other than malignant neoplasm (principal) | CPT/HCPCS: 99212 ==

== ENCOUNTER → 2023-09-29 11:18 | Outpatient (BNVA) | payer MEDICARE, SELFPAY | PROVIDERS: PCP Family Medicine; Visit Provider Specialist | DX: G20.A1 Parkinson's disease without dyskinesia, without mention of fluctuations (principal) | CPT/HCPCS: 99213 ==